=== PATIENT | male | born 1955 | race Caucasian/White ===

== ENCOUNTER 2024-11-07 13:18 | Outpatient (AMB) | payer MEDICARE, OTHER, SELFPAY ==
--- NOTE | 2024-11-07 13:30 | MHC.OFFWIV ---
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 Patient Tobacco Use Status: Never used Tobacco Allergies No Known Allergies Allergy (Verified 11/07/24 13:31) Do you need a note to return to daycare/school/sports/work: No HPI HPI Comments History of Present Illness Details History of Present Illness The patient is a 69-year-old male presenting with concerns about elevated blood pressure. During an evaluation for life insurance, his blood pressure readings were recorded thrice, each time being 180/100 mmHg. This occurrence prompted the patient to seek medical evaluation. He reports a known history of mildly elevated blood pressure but had not previously sought medical attention for this condition. The patient has experienced associated symptoms of lightheadedness, headaches, shortness of breath, dizziness, and occasional chest discomfort, aligning with symptoms of hypertension. These symptoms have been present for an unspecified duration but have contributed to his decision to seek care. He states he currently has none of these symptoms. The patient admits to a poor diet high in salt, neglects regular health check-ups, and does not currently monitor his blood pressure at home. There is no regular primary care engagement, with the last medical visit occurring during childhood. Physical Exam General: Cooperative, healthy appearing, comfortable, no acute distress and well developed Orientation: Patient oriented x3 Limitations: No limitations Head: Normal to inspection Ears: Hearing grossly normal bilaterally Nose: Normal external nose present Face and sinus: Normal facial exam Eyes: Appearance normal, both eyes and all related structures Neck: Normal visual inspection and Yes full ROM Respiratory: Normal respiratory effort and able to speak in complete sentences. Skin: No rashes or lesions noted Neuro: Patient oriented x3 Extremities: Normal to inspection PFSH Social History Patient Tobacco Use Status: Never used Tobacco Physical Exam Vital Signs: Last Vital Signs Pulse 77 11/07/24 13:31 BP 140/90 H 11/07/24 13:31 Pulse Ox 100 11/07/24 13:31 Oxygen Delivery Method Room Air 11/07/24 13:31 Assessment & Plan Assessment & Plan (1) Elevated blood pressure reading without diagnosis of hypertension: Code(s): R03.0 - Elevated blood-pressure reading, without diagnosis of hypertension Plan: Plan - Begin dietary sodium reduction to manage/help reduce elevated blood pressures. - Begin regular home blood pressure monitoring with a recommended device, available at [employer] or similar stores. Track daily and bring to PCP appt. - Advise to avoid canned and high-sodium foods to improve blood pressure control. - Discuss the importance of establishing care with a primary care provider for ongoing management of hypertension. - Assist in arranging an appointment with a primary care provider, ideally a male Physician Collision Repairer in [place], given the patient's insurance coverage with Medicare and [facility]. Able to secure an appt with Prosper Nieves PA-C on 12/20/24 at 2:45pm. - If symptoms develop and/or BP > 160/100, pt was educated to go to the ED or call 911. Patient was informed and verbally consented to the use of an ambient scribe for clinic note documentation during this visit. Coding Level of Care Code New Pt Level 4 (54442) Diagnoses Elevated blood pressure reading without diagnosis of hypertension R03.0
[2024-11-07 13:31] VITALS: BP 140/90; PULSE 77; O2SAT 100
== END 2024-11-07 14:00 | disposition home or self-care (01) ==
PROVIDERS: Visit Provider Physician Assistant
DX: R03.0 Elevated blood-pressure reading, without diagnosis of hypertension (principal)

== ENCOUNTER → 2024-11-07 13:18 | Outpatient (BNVA) | payer MEDICARE, OTHER, SELFPAY | PROVIDERS: Visit Provider Physician Assistant | DX: R03.0 Elevated blood-pressure reading, without diagnosis of hypertension (principal) | CPT/HCPCS: 99202 ==

== ENCOUNTER 2024-12-20 14:23 | Outpatient (AMB) | payer MEDICARE, OTHER, SELFPAY ==
--- NOTE | 2024-12-20 14:58 | MHC.PC.OV ---
Vital Signs 12/20/24 14:59 Height 5 ft 7 in Weight 256 lb 8 oz BMI 40.2 BP 150/90 H Blood Pressure Location Lt brachial Position Sitting Pulse 99 Pulse Source Pulse Oximeter Temp 97.7 F Temp Source Temporal Artery Scan Pulse Oximetry (%) 99 Oxygen Delivery Method Room Air Intake Visit Reasons: Establish care Intake Note: The patient is a new patient establishing care for hypertension. They have not seen a PCP in over 20-30 years. [employer] Required: No Accompanied by: Self / Same As Patient Allergies No Known Allergies Allergy (Verified 12/20/24 15:14) Medication List - Last Reconciled 12/20/24 by Darwin Nieves PA-C No Known Home Meds Tobacco use date assessed: 12/20/24 Fall risk assessment: No Falls in past year Last assessed Fall Risk: 12/20/24 Dental Screening Dental Screen Date: 12/20/24 Did you have a dental visit in the last 12 months?: Yes Did you have a dental problem in the last 6 months where you did not have access to dental care?: No Was dental information given to patient?: Patient has dentist HPI Establish care HPI Details Patient is a 69-year-old male here today for a new patient visit. Patient has not seen a PCP in over 20 years. Patient recently seen at our walk-in clinic and had elevated blood pressure readings 1 80s systolic. Today in office blood pressure remains elevated. Concern---> he does report knowing he does have high blood pressure though he is concerned about his arteries. He does admit to some chest tightness and shortness of breath on exertion. He is a nonsmoker. He reports does have a history of heart murmur has been told about many years ago. 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 Vaccines: Declines flu, pneumonia, Td Colorectal cancer screening: Declines [facility] Social History Housing: Apartment Patient Tobacco Use Status: Never used Tobacco e-Cigarette/Vaping Use: Never Used service: No Current occupational status: retired Cognitive needs: No Hearing needs: Yes Vision needs: No Questionnaire PHQ-9 Over the last 2 weeks, how often have you been bothered by any of the following problems? 1. Little interest or pleasure in doing things: not at all 2. Feeling down, depressed, or hopeless: not at all 3. Trouble falling or staying asleep, or sleeping too much: not at all 4. Feeling tired or having little energy: not at all 5. Poor appetite or overeating: not at all 6. Feeling bad about yourself - or that you are a failure or have let yourself or your family down: not at all 7. Trouble concentrating on things, such as reading the newspaper or watching television: not at all 8. Moving or speaking so slowly that other people could have noticed. Or the opposite - being so fidgety or restless that you have been moving around a lot more than usual: not at all 9. Thoughts that you would be better off or of hurting yourself in some way: not at all Total score: 0 Depression Screening Interpretation: Negative Depression Screening Done: Yes 85552 - PHQ-9 Billing: Yes Source: Developed by Drs. Bobby Mark, Honey Lugo, Jermaine Arrieta and colleagues, with an educational mariano from [employer]. Thrive Questionnaire Date Thrive assessed: 12/20/24 I am a: Patient What is your living situation today?: I have a steady place to live Within the past 12 months, did the food you bought not last and you didn't have the money to get more?: Never true Within the past 12 months, did you worry whether your food would run out before you got money to buy more?: Never true Do you have trouble paying for medicines?: No Do you have trouble getting transportation to medical appointments?: No Do you have trouble paying your heating and electricity bill?: No Do you have trouble taking care of your child, family member or friend?: No Do you have trouble with day-to-day activities such as bathing, preparing meals, shopping, managing finances, etc.?: No Are you currently unemployed and looking for a job?: No Are you interested in more education?: No Please select the resources that you would like help with: None Currently or been in a relationship where the following occur: No concerns reported THRIVE Score: 0 AUDIT C Alcohol Use Questionnaire (AUDIT-C) 1. How often do you have a drink containing alcohol?: Never 3. How often do you have six or more drinks on one occasion?: Never Total Score: 0 MATTHEW-7 AMB Questionnaire MATTHEW-7 Date MATTHEW - 7 assessed: 12/20/24 Feeling nervous, anxious, or on edge: 0 = Not at all Not being able to stop or control worryin = Not at all Worrying too much about different things: 0 = Not at all Trouble relaxin = Not at all Being so restless that it is hard to sit still: 0 = Not at all Becoming easily annoyed or irritable: 0 = Not at all Feeling afraid as if something awful might happen: 0 = Not at all Total MATTHEW-7 score (0-4 normal; 5-9 mild; 10-14 moderate; 15-21 severe): 0 Source: Developed by Drs. Bobby Mark, Honey Lugo, Jermaine Arrieta and colleagues, with an educational mariano from [employer]. MATTHEW-7 Assessment Billing MATTHEW-7 Assessment Tool: MATTHEW-7 Assessment 26468 Review of Systems Const Denies headache(s) Eyes Denies loss of vision ENT Denies vertigo, Denies dizziness, Denies headache(s) and Denies sore throat Card Denies chest pain, Denies leg edema and Denies lightheadedness Resp Denies cough, Denies hemoptysis and Denies wheezing GI Denies abdominal pain, Denies melena, Denies constipation, Denies diarrhea and Denies vomiting Denies dysuria, Denies urinary frequency and Denies urinary urgency Musc Denies arthralgias, Denies joint swelling, Denies numbness and Denies tingling Neuro Denies Abnormal speech present, Denies behavioral changes, Denies vertigo, Denies dizziness, Denies headache(s), Denies loss of vision, Denies memory loss, Denies numbness and Denies tingling Psych Denies anxiety, Denies behavioral changes, Denies depression, Denies memory loss and Denies panic attacks Zoltan/Lymph Denies easy bleeding and Denies easy bruising Aller/Immun Denies wheezing Physical exam (Primary Care) Vital Signs: Last Vital Signs Temp 97.7 F 12/20/24 14:59 Pulse 99 12/20/24 14:59 BP 150/90 H 12/20/24 14:59 Pulse Ox 99 12/20/24 14:59 Oxygen Delivery Method Room Air 12/20/24 14:59 BMI result Body Mass Index 40.2 BMI Assessment/Plan discussion: High BMI High, discussed plan: lifestyle, weight reduction, dietary and physical activity Tobacco/Smoking Status: Tobacco use Status Tobacco use date assessed 12/20/24 12/20/24 15:05 Patient Tobacco Use Status Never used Tobacco 12/20/24 15:01 e-Cigarette/Vaping Use Never Used 12/20/24 15:05 PHQ-9: PHQ-9 Score PHQ-9: Total score 0 12/20/24 15:46 Depression Screening Interpretation: Negative Thrive Assessment: Date of Thrive Assessment Date Thrive assessed 12/20/24 12/20/24 15:05 Currently or been in a relationship where the following occur: No concerns reported Const General: healthy appearing, no acute distress, alert and awake Nutritional Appearance: well nourished Orientation/consciousness: oriented to person, oriented to place and oriented to time HENMT Other: RIGHT EAR CERUMEN IMPACTION NOTED Ears: TM's normal bilaterally General nose exam: Normal nasal mucous membranes and turbinates present Eyes Conjunctivae: conjunctivae normal Sclerae: sclerae normal Pupils: Equal, round and reactive pupils present Neck Neck: Yes no lymphadenopathy and Yes no JVD Thyroid: Thyroid normal Carotids: no bruits Resp Effort & Inspection: normal respiratory effort and not tachypneic Auscultation: no crackles, no rales, no rhonchi and no wheezes Cardio Rate: regular rate Rhythm: abnormal rhythm irregularly irregular Heart sounds: no murmurs and normal S1 and S2 GI Palpation (GI): Soft to palpation, nontender, no hepatomegaly and no splenomegaly Auscultation: normal bowel sounds Skin General skin exam: no rashes or lesions noted and dry skin Neuro General: oriented to person, oriented to place and oriented to time Cranial nerves: Yes Equal, round and reactive pupils present Speech: No Abnormal speech present Gait exam (Neuro): Normal gait present Motor exam (neuro): no tremor noted Extrem Right upper extremity: full ROM Left upper extremity: full ROM Right lower extremity: full ROM; no edema Left lower extremity: full ROM; no edema Psych Mental Status: mental status grossly normal Speech and movement: Normal speech and movement present Affect: normal affect Attitude: cooperative Thought process: Normal thought process present Office Procedures EKG 61526-[id number], Complete Coding Level of Care Code New Pt Level 4 (84590) Diagnoses New onset a-fib I48.91 Primary hypertension I10 Hypertension type: primary hypertension Screening for diabetes mellitus (DM) Z13.1 SOB (shortness of breath) on exertion R06.02 Sensorineural hearing loss (SNHL) of both ears H90.3 Laterality: bilateral Class 3 obesity E66.813 CPT Codes EKG - CPT: 69417-[id number], Complete ([id number]) Additional Codes MATTHEW-7 Assessment Billing - MATTHEW-7 Assessment Tool: AMTTHEW-7 Assessment 40629 ([id number]) PHQ-9 - 17070 - PHQ-9 Billing: Yes ([id number]) Assessment & Plan Assessment & Plan (1) New onset a-fib: Code(s): I48.91 - Unspecified atrial fibrillation Category: Medical Plan: Noted AFib here in office today. He has never been diagnosed with this before. Has normal mean ventricular response. CHADS score presumably 1. Will start baby aspirin and refer to Cardiology for further evaluation. (2) HTN (hypertension): Code(s): I10 - Essential (primary) hypertension Category: Medical Qualifiers: Hypertension type: primary hypertension Qualified Code(s): I10 - Essential (primary) hypertension Plan: Noted blood pressure to be elevated today in office and has been at previous office visits. He is willing to start low-dose hydrochlorothiazide to help lower his blood pressure. Goal blood pressures to be below 140/90 (3) Screening for diabetes mellitus (DM): Code(s): Z13.1 - Encounter for screening for diabetes mellitus Category: Medical Plan: As per HPI (4) SOB (shortness of breath) on exertion: Code(s): R06.02 - Shortness of breath Category: Medical Plan: Due to patient's chest discomfort and shortness of breath on exertion in the setting of elevated blood pressures will send for Jerry protocol cardiac stress testing to evaluate for cardiac ischemia on physical exam. (5) SNHL (sensorineural hearing loss): Code(s): H90.5 - Unspecified sensorineural hearing loss Category: Medical Qualifiers: Laterality: bilateral Qualified Code(s): H90.3 - Sensorineural hearing loss, bilateral Plan: Patient does have a cerumen impaction in his right ear though left ear clear. He does report having decreased hearing in both ears. Will send for hearing exam to evaluate for sensorineural hearing loss. Will set patient up in a few weeks to do right ear lavage. (6) Class 3 obesity: Code(s): E66.813 - Obesity, class 3 Category: Medical Plan: Patient does understand his BMI is over 40 reluctant to start working on dietary modifications. He is considering being more physically active to lose some weight. Orders: Orders Comprehensive [place]. Panel Fast 12/20/24 I10 - Essential (primary) hypertension Complete Blood Count no Diff 12/20/24 I10 - Essential (primary) hypertension Microalbumin, Random (w Creat) 12/20/24 I10 - Essential (primary) hypertension Prostate Specific Antigen Scr 12/20/24 I10 - Essential (primary) hypertension, Z12.5 - Encounter for screening for malignant neoplasm of prostate Lipid Panel 12/20/24 I10 - Essential (primary) hypertension AMB EKG-In Office 12/20/24 I49.9 - Cardiac arrhythmia, unspecified CA stress test 12/20/24 R06.02 - Shortness of breath Referrals Speech and Hearing Referral H90.3 - Sensorineural hearing loss, bilateral Cardiology Referral I48.91 - Unspecified atrial fibrillation Medications: New aspirin (Adult Low Dose Aspirin) 81 mg PO DAILY 90 tabs 1RF 90 days I48.91 - Unspecified atrial fibrillation hydrochlorothiazide 12.5 mg PO DAILY 90 tabs 1RF 90 days I10 - Essential (primary) hypertension
[2024-12-20 14:59] VITALS: BP 150/90; PULSE 99; TEMP 36.5; O2SAT 99; BMI 40.2
== END 2024-12-20 16:06 | disposition home or self-care (01) ==
PROVIDERS: Visit Provider Physician Assistant
DX: I49.9 Cardiac arrhythmia, unspecified (principal); R06.02 Shortness of breath

== ENCOUNTER → 2024-12-20 14:23 | Outpatient (BNVA) | payer MEDICARE, OTHER, SELFPAY | PROVIDERS: Visit Provider Physician Assistant | DX: I48.91 Unspecified atrial fibrillation (principal); I10 Essential (primary) hypertension; R06.02 Shortness of breath; H90.3 Sensorineural hearing loss, bilateral; E66.813 Obesity, class 3 | CPT/HCPCS: 93005; 96127; 99202 ==

== ENCOUNTER 2024-12-22 06:54 | Outpatient (REF) | payer MEDICARE, OTHER, SELFPAY ==
[2024-12-22 10:05] LABS: Hematocrit 49.5 % (42.0-52.0); Hemoglobin 16.7 g/dl (14.0-18.0); Mean Corpuscular HGB Conc 33.7 g/dl (31.0-36.0); Mean Corpuscular Hemoglobin 31.6 pg (27.0-33.0); Mean Corpuscular Volume 93.6 fL (80.0-98.0); Mean Platelet Volume 11.9 fL (9.4-12.4); Platelet Count 243 X10*3/uL (160-400); Red Blood Count 5.29 X10*6/uL (4.60-5.80); Red Cell Distribution Width 12.5 % (11.0-16.0); White Blood Count 5.3 X10*3/uL (4.8-10.8)
[2024-12-22 10:22] LABS: Alanine Aminotransferase 21 U/L (0-40); Albumin Level 4.2 g/dL (3.5-5.0); Alkaline Phosphatase 64 U/L (39-117); Anion Gap 9 (12-20); Aspartate Amino Transferase 28 U/L (5-37); Bilirubin Total 0.8 mg/dL (0.0-1.0); Blood Urea Nitrogen 19 mg/dL (9-16); Calcium 9.2 mg/dL (8.4-10.2); Carbon Dioxide 25 mmol/L (22-29); Chloride 109 mmol/L (96-108); Cholesterol 164 mg/dL (<200); Estimated Glomerular Filt Rate > 60; Glucose Fasting 89 mg/dL (60-99); HDL Cholesterol 46 mg/dL (>40); LDL Cholesterol Calculated 102 mg/dL (<100); Potassium 4.7 mmol/L (3.3-5.1); Sodium 138 mmol/L (135-145); Total Protein 7.3 g/dL (6.5-8.0); Triglycerides 82 mg/dL (<150)
[2024-12-22 10:35] LABS: Prostate Specific Antigen Scr 2.79 ng/mL (<0.05-4.0)
[2024-12-22 10:47] LABS: Creatinine Urine 110.05 mg/dL; Microalbumin Urine < 5.0 mg/L
== END 2024-12-22 06:55 | disposition home or self-care (01) ==
LOC: HO.HMGCLDS 06:54
PROVIDERS: PCP Physician Assistant; Visit Provider Physician Assistant
DX: I10 Essential (primary) hypertension (principal); Z12.5 Encounter for screening for malignant neoplasm of prostate
CPT/HCPCS: 36415; 80053; 80061; 82043; 82570; 84153; 85027

== ENCOUNTER 2025-01-09 13:09 | Outpatient (AMB) | payer MEDICARE, OTHER, SELFPAY ==
--- NOTE | 2025-01-09 13:18 | A.OFFPC_ITS ---
Vital Signs 01/09/25 13:19 Height 5 ft 7 in Weight 256 lb BMI 40.1 BP 142/96 H Blood Pressure Location Lt brachial Position Sitting Pulse 112 H Pulse Source Pulse Oximeter Pulse Oximetry (%) 99 Oxygen Delivery Method Room Air Intake Visit Reasons: Ear Flush Cloud Physicist Required: No Accompanied by: Self / Same As Patient Allergies No Known Allergies Allergy (Verified 01/09/25 13:29) Medication List - Last Reconciled 01/09/25 by Darwin Nieves PA-C apixaban (Eliquis) 5 mg PO BID 90 days hydrochlorothiazide 12.5 mg PO DAILY 90 days Tobacco use date assessed: 01/09/25 Fall risk assessment: No Falls in past year Last assessed Fall Risk: 01/09/25 Dental Screening Dental Screen Date: 01/09/25 Did you have a dental visit in the last 12 months?: No Did you have a dental problem in the last 6 months where you did not have access to dental care?: No Was dental information given to patient?: No HPI Ear Flush HPI Details Patient is a 69-year-old male here today for cerumen impaction. Has upcoming appointment with hearing center for hearing exam. Blood pressure: Remains elevated today in office. He feels much better since starting Eliquis though does not feel hydrochlorothiazide helpful. Has upcoming appointment with Cardiology. [facility] Social History Housing: Apartment Patient Tobacco Use Status: Never used Tobacco e-Cigarette/Vaping Use: Never Used service: No Current occupational status: retired Cognitive needs: No Hearing needs: Yes Vision needs: No Questionnaire PHQ-9 Over the last 2 weeks, how often have you been bothered by any of the following problems? 1. Little interest or pleasure in doing things: not at all 2. Feeling down, depressed, or hopeless: not at all 3. Trouble falling or staying asleep, or sleeping too much: not at all 4. Feeling tired or having little energy: not at all 5. Poor appetite or overeating: not at all 6. Feeling bad about yourself - or that you are a failure or have let yourself or your family down: not at all 7. Trouble concentrating on things, such as reading the newspaper or watching television: not at all 8. Moving or speaking so slowly that other people could have noticed. Or the opposite - being so fidgety or restless that you have been moving around a lot more than usual: not at all 9. Thoughts that you would be better off or of hurting yourself in some way: not at all Total score: 0 Depression Screening Interpretation: Negative Depression Screening Done: Yes 94000 - PHQ-9 Billing: Yes Source: Developed by Drs. Bobby Mark, Honey Lugo, Jermaine Arrieta and colleagues, with an educational mariano from [employer]. Thrive Questionnaire Date Thrive assessed: 01/09/25 I am a: Patient What is your living situation today?: I have a steady place to live Within the past 12 months, did the food you bought not last and you didn't have the money to get more?: Never true Within the past 12 months, did you worry whether your food would run out before you got money to buy more?: Never true Do you have trouble paying for medicines?: No Do you have trouble getting transportation to medical appointments?: No Do you have trouble paying your heating and electricity bill?: No Do you have trouble taking care of your child, family member or friend?: No Do you have trouble with day-to-day activities such as bathing, preparing meals, shopping, managing finances, etc.?: No Are you currently unemployed and looking for a job?: No Are you interested in more education?: No Please select the resources that you would like help with: None Currently or been in a relationship where the following occur: No concerns reported THRIVE Score: 0 AUDIT C Alcohol Use Questionnaire (AUDIT-C) 1. How often do you have a drink containing alcohol?: Never 3. How often do you have six or more drinks on one occasion?: Never Total Score: 0 MATTHEW-7 AMB Questionnaire MATTHEW-7 Date MATTHEW - 7 assessed: 01/09/25 Feeling nervous, anxious, or on edge: 0 = Not at all Not being able to stop or control worryin = Not at all Worrying too much about different things: 0 = Not at all Trouble relaxin = Not at all Being so restless that it is hard to sit still: 0 = Not at all Becoming easily annoyed or irritable: 0 = Not at all Feeling afraid as if something awful might happen: 0 = Not at all Total MATTHEW-7 score (0-4 normal; 5-9 mild; 10-14 moderate; 15-21 severe): 0 Source: Developed by Drs. Bobby Mark, Honey Lugo, Jermaine Arrieta and colleagues, with an educational mariano from [employer]. MATTHEW-7 Assessment Billing MATTHEW-7 Assessment Tool: MATTHEW-7 Assessment 38249 Review of Systems Const Denies headache(s) Eyes Denies loss of vision ENT Denies vertigo, Denies dizziness, Denies headache(s) and Denies sore throat Card Denies chest pain, Denies leg edema and Denies lightheadedness Resp Denies cough, Denies hemoptysis and Denies wheezing GI Denies abdominal pain, Denies melena, Denies constipation, Denies diarrhea and Denies vomiting Denies dysuria, Denies urinary frequency and Denies urinary urgency Musc Denies arthralgias, Denies joint swelling, Denies numbness and Denies tingling Neuro Denies Abnormal speech present, Denies behavioral changes, Denies vertigo, Denies dizziness, Denies headache(s), Denies loss of vision, Denies memory loss, Denies numbness and Denies tingling Psych Denies anxiety, Denies behavioral changes, Denies depression, Denies memory loss and Denies panic attacks Zoltan/Lymph Denies easy bleeding and Denies easy bruising Aller/Immun Denies wheezing Physical exam (Primary Care) Vital Signs: Last Vital Signs Pulse 112 H 01/09/25 13:19 BP 142/96 H 01/09/25 13:19 Pulse Ox 99 01/09/25 13:19 Oxygen Delivery Method Room Air 01/09/25 13:19 BMI result Body Mass Index 40.1 Tobacco/Smoking Status: Tobacco use Status Tobacco use date assessed 01/09/25 01/09/25 13:27 Patient Tobacco Use Status Never used Tobacco 01/09/25 13:27 e-Cigarette/Vaping Use Never Used 01/09/25 13:27 PHQ-9: PHQ-9 Score PHQ-9: Total score 0 01/09/25 13:30 Depression Screening Interpretation: Negative Thrive Assessment: Date of Thrive Assessment Date Thrive assessed 01/09/25 01/09/25 13:27 Currently or been in a relationship where the following occur: No concerns reported Const General: healthy appearing, no acute distress, alert and awake Nutritional Appearance: well nourished Orientation/consciousness: oriented to person, oriented to place and oriented to time HENMT Other: RIGHT EAR: CERUMEN IMPACTION Ears: TM's normal bilaterally General nose exam: Normal nasal mucous membranes and turbinates present Eyes Conjunctivae: conjunctivae normal Sclerae: sclerae normal Pupils: Equal, round and reactive pupils present Neck Neck: Yes no lymphadenopathy and Yes no JVD Thyroid: Thyroid normal Carotids: no bruits Resp Effort & Inspection: normal respiratory effort and not tachypneic Auscultation: no crackles, no rales, no rhonchi and no wheezes Cardio Rate: regular rate Rhythm: regular rhythm Heart sounds: no murmurs and normal S1 and S2 GI Palpation (GI): Soft to palpation, nontender, no hepatomegaly and no splenomegaly Auscultation: normal bowel sounds Skin General skin exam: no rashes or lesions noted and dry skin Neuro General: oriented to person, oriented to place and oriented to time Cranial nerves: Yes Equal, round and reactive pupils present Speech: No Abnormal speech present Gait exam (Neuro): Normal gait present Motor exam (neuro): no tremor noted Extrem Right upper extremity: full ROM Left upper extremity: full ROM Right lower extremity: full ROM; no edema Left lower extremity: full ROM; no edema Psych Mental Status: mental status grossly normal Speech and movement: Normal speech and movement present Affect: normal affect Attitude: cooperative Thought process: Normal thought process present Office Procedures Cerumen Removal From which ear canal was the cerumen removed: right Removal: irrigation and otoscope w/curette Notes: patient tolerated procedure well [id number] Irrigation/Lavage Coding Level of Care Code Est Pt Level 3 (22270) Diagnoses Excessive cerumen in right ear canal H61.21 Primary hypertension I10 Hypertension type: primary hypertension CPT Codes Office Procedure - CPT: 03718-Puc Irrigation/Lavage ([id number]) Additional Codes MATTHEW-7 Assessment Billing - MATTHEW-7 Assessment Tool: MATTHEW-7 Assessment 60175 ([id number]) PHQ-9 - 32475 - PHQ-9 Billing: Yes ([id number]) Assessment & Plan Assessment & Plan (1) Excessive cerumen in right ear canal: Code(s): H61.21 - Impacted cerumen, right ear Category: Medical Plan: Unsuccessful attempt on right ear lavage. Will goal when due his own soaks in his right ear and will have by patient back in 10 days to do ear lavage again. He will postpone his appointment with the hearing center for hearing exam. (2) HTN (hypertension): Code(s): I10 - Essential (primary) hypertension Category: Medical Qualifiers: Hypertension type: primary hypertension Qualified Code(s): I10 - Essential (primary) hypertension Plan: Patient now monitoring blood pressure. Still slightly elevated here in office. He reports blood pressure systolic 140 even with the use of hydrochlorothiazide 12.5 mg. Reports since starting Eliquis he feels his breathing has been much better. We discussed possibly increasing his hydrochlorothiazide or trying an alternative blood pressure medications he would like to hold off and speak to Cardiology about additional blood pressure medication. Advised to continue monitoring with goal blood pressure to be below 140/90
[2025-01-09 13:19] VITALS: BP 142/96; PULSE 112; O2SAT 99; BMI 40.1
== END 2025-01-09 14:01 | disposition home or self-care (01) ==
PROVIDERS: Visit Provider Physician Assistant
DX: H61.21 Impacted cerumen, right ear (principal); I10 Essential (primary) hypertension

== ENCOUNTER → 2025-01-09 13:09 | Outpatient (BNVA) | payer MEDICARE, OTHER, SELFPAY | PROVIDERS: Visit Provider Physician Assistant | DX: H61.21 Impacted cerumen, right ear (principal); I10 Essential (primary) hypertension | CPT/HCPCS: 69210; 96127; 99212 ==

== ENCOUNTER 2025-01-12 14:51 | Outpatient (AMB) | payer MEDICARE, OTHER, SELFPAY ==
[2025-01-12 15:10] VITALS: BP 130/40; PULSE 113; BMI 40.4
--- NOTE | 2025-01-12 15:10 | A.OFFVIS_ITS ---
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 The patient reports that he has not seen a doctor prior to November of this year. During his initial visit with the PCP, he was diagnosed with hypertension was started on hydrochlorothiazide. At that time the patient also noted increased shortness of breath, and an EKG revealed AFib with RVR. He was subsequently started on Eliquis. Patient denies any prior history of ischemic heart disease, cardiomyopathy, or coronary artery disease. Currently, patient reports that he has only been experiencing mild exertional shortness of breath and denies any exertional chest pain, palpitations, dizziness, fatigue, orthopnea, PND, leg edema, presyncope, or syncope. The patient also denies use of alcohol or nicotine. [facility] Social History Housing: Apartment Alcohol intake: never Patient Tobacco Use Status: Never used Tobacco e-Cigarette/Vaping Use: Never Used service: No Current occupational status: retired Cognitive needs: No Hearing needs: Yes Vision needs: No Review of Systems Const Denies chills, Denies fatigue, Denies fever(s), Denies frequent falls, Denies weakness, Denies weight gain and Denies weight loss ENT Denies dizziness Card Denies chest pain, Denies leg edema, Denies lightheadedness, Denies pal pitations, Denies dyspnea and Denies dyspnea on exertion Resp Denies cough, Denies dyspnea and Denies dyspnea on exertion GI Denies hematochezia Musc Denies abnormal gait, Denies muscle weakness, Denies numbness, Denies radiating pain into limb and Denies tingling Neuro Denies abnormal gait, Denies dizziness, Denies frequent falls, Denies numbness, Denies tingling and Denies weakness Endo Denies fatigue and Denies palpitations Physical Exam Vital Signs: Last Vital Signs Pulse 113 H 01/12/25 15:10 BP 130/40 L 01/12/25 15:10 BMI result Body Mass Index 40.4 Const General: cooperative, healthy appearing, comfortable and no acute distress Orientation/consciousness: patient oriented x3 HEENT Head: Yes normal to inspection Neck Neck: Yes normal visual inspection, Yes trachea midline and Yes supple Chest Chest palpation & inspection: normal inspection of the chest Resp Effort & Inspection: normal respiratory effort Auscultation: clear to auscultation bilaterally, no crackles, no rales, no rhonchi and no wheezes Cardio Jugular venous distension: no JVD Palpation: normal PMI Rhythm: abnormal rhythm irregularly irregular Heart sounds: S1 normal heart sound present, S2 normal heart sound present, no click, no gallops, Murmur heart sound present systolic at the right sternal border and no rubs Peripheral pulses: Peripheral pulses 2+ throughout GI Inspection: Yes normal to inspection Palpation (GI): Soft to palpation Auscultation: normal bowel sounds Skin General skin exam: no rashes or lesions noted Neuro General: patient oriented x3 Extrem General: Yes normal to inspection, No no pedal edema and No calf tenderness Psych Appearance: grossly normal Mental Status: mental status grossly normal Speech and movement: Normal speech and movement present Office Procedures EKG Details: EKG today showed AFib with RVR, rate 113 beats per minute, nonspecific STT wave abnormalities, [place]. [id number], Complete Assessment & Plan Assessment & Plan (1) Afib: Code(s): I48.91 - Unspecified atrial fibrillation Category: Medical Plan: Patient's EKG today showed AFib with RVR. The patient began taking his Eliquis on 01/05/2025, and with the [id number] score of at least 2, continue with full anticoagulation therapy to reduce the high risk of stroke. Renal and liver function will be monitored periodically. Heart rate remains uncontrolled. We will initiate metoprolol XL for rate control. We also reviewed the pathophysiology of AFib and discussed about rhythm control strategies in the option of ablation. The patient expressed hesitation to what any procedures at this time. We will proceed with an echocardiogram to assess LV systolic and diastolic function. Based on the results, we will determine a rhythm control strategy. Patient was also informed on the option about cardioversion in detail and is agreeable to this approach. We will bring the patient back in 1 month to further discuss the initiation of antiarrhythmic therapy. Once this is started, we will schedule him for cardioversion. (2) HTN (hypertension): Code(s): I10 - Essential (primary) hypertension Category: Medical Qualifiers: Hypertension type: primary hypertension Qualified Code(s): I10 - Essential (primary) hypertension Plan: Blood pressure today is well controlled however, patient notes that he has been checking it at home and has noticed blood pressures have been mostly in the 140s to 150s systolic. Continue with the hydrochlorothiazide. Start metoprolol. (3) Murmur: Code(s): R01.1 - Cardiac murmur, unspecified Category: Medical Plan: Systolic murmur heard at the right 2nd intercostal sternal border. We will get an echo to look for any valvular abnormalities. Advised patient to lose weight, start regular exercise, and aggressive management of vascular risk factors. Follow-up in 1 month. In the interim, patient will call us with any concerns or change in symptoms. This note was generated using voice recognition software. While every effort has been made to ensure accuracy and proper towel sorter, there may be occasional errors that could affect the content or meaning of the described symptoms. Orders: Orders AMB EKG-In Office Today I48.91 - Unspecified atrial fibrillation CA echo transthoracic complete Today I48.91 - Unspecified atrial fibrillation Medications: New metoprolol succinate ER 50 mg PO DAILY 90 tabs 1RF Coding Level of Care Code New Pt Level 4 (90461) Diagnoses Afib I48.91 Primary hypertension I10 Hypertension type: primary hypertension Murmur R01.1 CPT Codes EKG - CPT: 56462-Wqjytbafpzeneewxj, Complete ([id number]) Time Spent (min) 34 Comment Time spent in reviewing the chart, test results, assessment, counseling and documentation.
== END 2025-01-12 15:48 | disposition home or self-care (01) ==
PROVIDERS: PCP Physician Assistant
DX: I48.91 Unspecified atrial fibrillation (principal); I10 Essential (primary) hypertension; R01.1 Cardiac murmur, unspecified
CPT/HCPCS: 93010; 99204

== ENCOUNTER → 2025-01-12 14:51 | Outpatient (BNVA) | payer MEDICARE, OTHER, SELFPAY | PROVIDERS: PCP Physician Assistant | DX: I48.91 Unspecified atrial fibrillation (principal); I10 Essential (primary) hypertension; R94.31 Abnormal electrocardiogram [ECG] [EKG] | CPT/HCPCS: 93005; 99202 ==

== ENCOUNTER 2025-01-19 12:45 | Outpatient (AMB) | payer MEDICARE, OTHER, SELFPAY ==
--- NOTE | 2025-01-19 12:47 | A.OFFPC_ITS ---
Vital Signs 01/19/25 12:49 Height 5 ft 7 in Weight 259 lb BMI 40.6 BP 132/80 Blood Pressure Location Lt brachial Position Sitting Pulse 125 H Pulse Source Pulse Oximeter Pulse Oximetry (%) 98 Oxygen Delivery Method Room Air Intake Visit Reasons: Right ear cleaning Skid Strapper Required: No Accompanied by: Self / Same As Patient Allergies No Known Allergies Allergy (Verified 01/19/25 13:00) Tobacco use date assessed: 01/09/25 Fall risk assessment: No Falls in past year Last assessed Fall Risk: 01/19/25 Dental Screening Dental Screen Date: 01/09/25 HPI Right ear cleaning HPI Details Patient here for follow-up right ear cerumen impaction removal. Has been using home remedies to dislodge his cerumen which has been successful. No cerumen in ear today thus your lavage did not need to be done. [facility] Surgical History No pertinent past surgical history Social History Housing: Apartment Alcohol intake: never Patient Tobacco Use Status: Never used Tobacco e-Cigarette/Vaping Use: Never Used service: No Current occupational status: retired Cognitive needs: No Hearing needs: Yes Vision needs: No Questionnaire Thrive Questionnaire Date Thrive assessed: 01/09/25 MATTHEW-7 AMB Questionnaire MATTHEW-7 Date MATTHEW - 7 assessed: 01/09/25 Source: Developed by Drs. Bobby Mark, Honey Lugo, Jermaine Arrieta and colleagues, with an educational mariano from [employer]. Review of Systems Const Denies headache(s) Eyes Denies loss of vision ENT Denies vertigo, Denies dizziness, Denies headache(s) and Denies sore throat Card Denies chest pain, Denies leg edema and Denies lightheadedness Resp Denies cough, Denies hemoptysis and Denies wheezing GI Denies abdominal pain, Denies melena, Denies constipation, Denies diarrhea and Denies vomiting Denies dysuria, Denies urinary frequency and Denies urinary urgency Musc Denies arthralgias, Denies joint swelling, Denies numbness and Denies tingling Neuro Denies Abnormal speech present, Denies behavioral changes, Denies vertigo, Denies dizziness, Denies headache(s), Denies loss of vision, Denies memory loss, Denies numbness and Denies tingling Psych Denies anxiety, Denies behavioral changes, Denies depression, Denies memory loss and Denies panic attacks Zoltan/Lymph Denies easy bleeding and Denies easy bruising Aller/Immun Denies wheezing Physical exam (Primary Care) Vital Signs: Last Vital Signs Pulse 125 H 01/19/25 12:49 BP 132/80 01/19/25 12:49 Pulse Ox 98 01/19/25 12:49 Oxygen Delivery Method Room Air 01/19/25 12:49 BMI result Body Mass Index 40.6 Tobacco/Smoking Status: Tobacco use Status Tobacco use date assessed 01/09/25 01/19/25 12:49 Patient Tobacco Use Status Never used Tobacco 01/19/25 12:49 e-Cigarette/Vaping Use Never Used 01/19/25 12:49 Thrive Assessment: Date of Thrive Assessment Date Thrive assessed 01/09/25 01/19/25 12:49 Const General: healthy appearing, no acute distress, alert and awake Nutritional Appearance: well nourished Orientation/consciousness: oriented to person, oriented to place and oriented to time HENMT Ears: TM's normal bilaterally General nose exam: Normal nasal mucous membranes and turbinates present Eyes Conjunctivae: conjunctivae normal Sclerae: sclerae normal Pupils: Equal, round and reactive pupils present Neck Neck: Yes no lymphadenopathy and Yes no JVD Thyroid: Thyroid normal Carotids: no bruits Resp Effort & Inspection: normal respiratory effort and not tachypneic Auscultation: no crackles, no rales, no rhonchi and no wheezes Cardio Rate: regular rate Rhythm: regular rhythm Heart sounds: no murmurs and normal S1 and S2 GI Palpation (GI): Soft to palpation, nontender, no hepatomegaly and no splenomegaly Auscultation: normal bowel sounds Skin General skin exam: no rashes or lesions noted and dry skin Neuro General: oriented to person, oriented to place and oriented to time Cranial nerves: Yes Equal, round and reactive pupils present Speech: No Abnormal speech present Gait exam (Neuro): Normal gait present Motor exam (neuro): no tremor noted Extrem Right upper extremity: full ROM Left upper extremity: full ROM Right lower extremity: full ROM; no edema Left lower extremity: full ROM; no edema Psych Mental Status: mental status grossly normal Speech and movement: Normal speech and movement present Affect: normal affect Attitude: cooperative Thought process: Normal thought process present Coding Level of Care Code Est Pt Level 3 (45737) Diagnoses Excessive cerumen in right ear canal H61.21 Assessment & Plan Assessment & Plan (1) Excessive cerumen in right ear canal: Code(s): H61.21 - Impacted cerumen, right ear Category: Medical Plan: As per HPI Patient was able to dislodge ear wax from right ear. Reports he is hearing a bit better though still feels a congestion feeling and tinnitus in his ear. Has upcoming appointment for hearing test next week.
[2025-01-19 12:49] VITALS: BP 132/80; PULSE 125; O2SAT 98; BMI 40.6
== END 2025-01-19 13:17 | disposition home or self-care (01) ==
PROVIDERS: Visit Provider Physician Assistant
DX: H61.21 Impacted cerumen, right ear (principal)

== ENCOUNTER → 2025-01-19 12:45 | Outpatient (BNVA) | payer MEDICARE, OTHER, SELFPAY | PROVIDERS: Visit Provider Physician Assistant | DX: H61.21 Impacted cerumen, right ear (principal) | CPT/HCPCS: 99212 ==

== ENCOUNTER 2025-01-24 08:39 | Outpatient (REF) | payer MEDICARE, OTHER, SELFPAY | END 2025-01-24 08:40 | disposition home or self-care (01) | LOC: HO.SH 08:39 | PROVIDERS: Visit Provider Physician Assistant | DX: Z46.1 Encounter for fitting and adjustment of hearing aid (principal); H90.3 Sensorineural hearing loss, bilateral | CPT/HCPCS: 92557; 92567 ==

== ENCOUNTER → 2025-02-01 09:25 | Outpatient (REF) | payer MEDICARE, OTHER, SELFPAY ==
--- NOTE | 2025-02-01 09:26 | CA_ITS ---
Transthoracic Echocardiogram Patient (Last, First, Middle): Oseas Baig, Gender: Male Date of : 1955 Age: 69 Procedure Date: 02/01/2025 Procedure Type: Transthoracic Echocardiogram Location: OP Height: 170.18 cm Weight: 113.4 kg BSA: 2.22 m2 Heart Rate: bpm BP: 138 / 72 mmHg Field Underwriter: TO Referring MD: Rogelio Chahal [employer] TECHNICIAN Facilities Operations Technician: Erick Davies MD Symptoms: I48.91 - Unspecified atrial fibrillation Study Quality: Fair, contrast ECG Rhythm: Atrial Fibrillation Conclusions: - 1. Normal LV ejection fraction of 55-60% with mild LVH 2. At least moderately dilated left atrium 3. Moderate to severe aortic stenosis 4. Mildly dilated ascending aorta Findings Procedure Information Contrast agent, definity, is being given per protocol without apparent complications. Left Ventricle Normal left ventricular size and systolic function. There is mildly increased left ventricular wall thickness. The visually estimated ejection fraction is between 55-60%. Diastolic function is indeterminate on the basis of available data. Right Ventricle The right ventricle was not well visualized. Atria The left atrium is moderately dilated. The right atrium is mildly dilated. Aortic Valve There is moderate calcification of the aortic valve. There is moderate to severe aortic valve stenosis. The peak aortic gradient is 36 mmHg.The mean gradient is 23 mmHg. The aortic valve area is 0.97 cm2. There is mild aortic valve regurgitation. Mitral Valve Normal mitral valve structure and function. There is trace mitral valve regurgitation. There is no mitral valve stenosis. Pulmonic Valve The pulmonic valve was not well visualized. Tricuspid Valve The tricuspid valve was not well visualized. Tricuspid regurgitation envelope is inadequate for calculation of right ventricular systolic pressure. Indeterminate right atrial pressure. Great Vessels The aorta was not well visualized. The pulmonary artery was not well visualized. There is mild dilatation of the ascending aorta measuring 3.70 cm. Venous The inferior vena cava was not well visualized. Pericardium/Pleural The pericardium was not well visualized. Prior Study Comparison No prior study available for comparison. Measurements 2D Linear Measurements IVSd: 1.23 0.6-0.9/0.6-1.0 cm LVIDd: 3.98 3.9-5.3/4.2-5.9 cm LVIDd Index: 1.79 2.4-3.2/2.2-3.1 cm/m2 LVIDs: 2.95 2.0-3.6 cm LVPWd: 1.09 0.7-1.1 cm LA Diam: 4.70 2.7-3.8/3.0-4.0 cm LAIDs Index: 2.12 1.5-2.3 cm/m2 LV Mass: 194.48 67-162/88-224 g LV Mass Index: 87.60 43-95/49-115 g/m2 LVOT Diam: 2.10 3.0+(-)1.3 cm 2D Systolic Function EF 4C: 59.90 >55% EF 2C: 59.10 >55% EF BiP: 57.10 >55% Mitral Valve MV Pk E: 0.81 MV Decel Time: 197.00 E'Lateral: 8.05 E'Medial: 6.42 E/E' Med: 12.60 E/E' Lat: 10.00 PHT: 58.00 MVA PHT: 3.79 Decel Hamblen: 4.11 Aortic Valve AoV Pk Huber: 3.02 AoV Mn Huber: 2.26 AoV VTI: 0.67 AoV Pk Grad: 36.00 Aov Mn Grad: 23.00 CHAZ Cont.VTI: 0.97 AI Pk Huber: 4.30 AI Hamblen: 1.75 LVOT LVOT Pk Huber: 0.84 LVOT Mn Huber: 0.59 LVOT VTI: 0.19 LVOT Pk Grad: 3.00 LVOT Mn Grad: 1.00 LVOT Diam: 2.10 LVOT Area: 3.46 Diastolic Function MV Pk E: 0.81 E'Medial: 6.42 E/E' Med: 12.60 E' Laterial: 8.05 E/E' Lat: 10.00 Right Ventricle TAPSE (mm): 14.40 TVS' Hubre: 7.87 Tricuspid Valve TR Pk Huber: 2.17 TR Pk Grad: 19.00 Great Vessels Aorta Sinus of Valsalva: 3.04 2.0-3.5 cm Ao Asc: 3.70 2.1-3.4 cm Updated in Other Vendor System with Status of Final Erick Davies MD electronically signed on 02/01/2025 4:17:21 PM with status of Final
== END ==
LOC: HO.CARD 09:25
PROVIDERS: PCP Physician Assistant
DX: I48.91 Unspecified atrial fibrillation (principal)
CPT/HCPCS: 93306; Q9957

== ENCOUNTER → 2025-02-01 09:26 | Outpatient (BNV) | payer MEDICARE, OTHER, SELFPAY | PROVIDERS: PCP Physician Assistant; Visit Provider Internal Medicine Cardiovascular Disease | DX: I35.2 Nonrheumatic aortic (valve) stenosis with insufficiency (principal); I35.8 Other nonrheumatic aortic valve disorders; I48.91 Unspecified atrial fibrillation | CPT/HCPCS: 93306 ==

== ENCOUNTER 2025-02-09 13:51 | Outpatient (AMB) | payer MEDICARE, OTHER, SELFPAY ==
--- NOTE | 2025-02-09 14:08 | A.OFFVIS_ITS ---
Vital Signs 02/09/25 14:09 Height 5 ft 7 in Weight 257 lb 15.053 oz BMI 40.4 BP 138/78 Blood Pressure Location Lt brachial Position Sitting Pulse 72 Pulse Source Pulse Oximeter Intake Visit Reasons: 1m follow up/echo prior Allergies No Known Allergies Allergy (Verified 01/19/25 13:00) Medication List - Last Reconciled 02/09/25 by Rogelio Chahal NP apixaban (Eliquis) 5 mg PO BID 90 days hydrochlorothiazide 12.5 mg PO DAILY 90 days metoprolol succinate ER 50 mg PO DAILY HPI Comments Details: This is a 69-year-old male patient with a history of AFib and hypertension presenting for a follow-up visit. Patient had experienced increased shortness of breath prompting his PCP to order a treadmill stress test which led to a diagnosis of AFib. He was subsequently seen here and was started on Eliquis. The patient also underwent an echocardiogram and for his elevated rates he was started on metoprolol. During the last visit, we discussed the options of ablation, antiarrhythmics, all cardioversion and the patient is now returning with his decision. Today the patient reports feeling well overall on the new medications and denies any cardiac symptoms including shortness of breath, exertional chest pain, palpitations, dizziness, fatigue, orthopnea, PND, leg edema, presyncope, or syncope. The patient confirms that he has been compliant with his prescribed medications and is currently refusing any further procedures or medications for the management of his AFib at this time. [facility] Surgical History No pertinent past surgical history Social History Housing: Apartment Alcohol intake: never Patient Tobacco Use Status: Never used Tobacco e-Cigarette/Vaping Use: Never Used service: No Current occupational status: retired Cognitive needs: No Hearing needs: Yes Vision needs: No Review of Systems Const Denies weakness ENT Denies dizziness Card Denies chest pain, Denies chest pain with activity, Denies syncope, Denies rapid heart rate, Denies pedal edema, Denies edema, Denies leg edema, Denies lighth eadedness, Denies palpitations, Denies dyspnea, Denies dyspnea on exertion and Denies orthopnea Resp Denies cough, Denies dyspnea and Denies dyspnea on exertion GI Denies hematochezia and Denies change in stool character Musc Denies abnormal gait, Denies muscle cramps, Denies muscle weakness, Denies numbness, Denies radiating pain into limb and Denies tingling Neuro Denies abnormal gait, Denies dizziness, Denies syncope, Denies numbness, Denies tingling and Denies weakness Endo Denies palpitations Physical Exam Vital Signs: Last Vital Signs Pulse 72 02/09/25 14:09 BP 138/78 02/09/25 14:09 BMI result Body Mass Index 40.4 Const General: cooperative, healthy appearing, comfortable and no acute distress Orientation/consciousness: patient oriented x3 HEENT Head: Yes normal to inspection Neck Neck: Yes normal visual inspection, Yes trachea midline and Yes supple Chest Chest palpation & inspection: normal inspection of the chest Resp Effort & Inspection: normal respiratory effort Auscultation: clear to auscultation bilaterally, no crackles, no rales, no rhonchi and no wheezes Cardio Jugular venous distension: no JVD Palpation: normal PMI Rate: regular rate Rhythm: abnormal rhythm irregularly irregular Heart sounds: S1 normal heart sound present, S2 normal heart sound present, no click, no gallops, Murmur heart sound present systolic at the left sternal bor abida and at the right sternal border and no rubs Peripheral pulses: Peripheral pulses 2+ throughout GI Inspection: Yes normal to inspection Palpation (GI): Soft to palpation Auscultation: normal bowel sounds Skin General skin exam: no rashes or lesions noted Neuro General: patient oriented x3 Extrem General: Yes normal to inspection, No no pedal edema and No calf tenderness Psych Appearance: grossly normal Mental Status: mental status grossly normal Speech and movement: Normal speech and movement present Office Procedures EKG Details: EKG today shows AFib, rate 95 beats per minute, nonspecific STT wave abnormalities, [place]. [id number]-[id number], Complete Assessment & Plan Assessment & Plan (1) Afib: Code(s): I48.91 - Unspecified atrial fibrillation Category: Medical Plan: EKG today continues to show AFib with a controlled heart rate. The patient reports that he has been monitoring his heart rate at home, which ranges between 60s to 80s. In the previous visit, we had discussed options for rhythm control, including ablation, antiarrhythmic drugs, and cardioversion. Today we again went over these options in detail with the patient family decided against any further procedures or medications at this time. Continue Eliquis for full anticoagulation therapy. No reports of signs of bleeding or falls. We will monitor labs periodically. Continue metoprolol therapy for rate control approach. I recommended Holter monitor to further assess his heart rate but the patient has declined this as well. The patient understands to contact the office if there is any changes in his condition or if symptoms worsen and he verbalized his understanding. (2) Aortic stenosis: Code(s): I35.0 - Nonrheumatic aortic (valve) stenosis Category: Medical Plan: 02/01/2025-patient underwent an echo study that showed an EF between 55-60% with mild LVH, moderate dilation of the left atrium, hvokrzyo-[id number] aortic stenosis, mildly dilated ascending aorta. Discussed in detail the signs and symptoms of aortic stenosis. Currently asymptomatic. We will periodically repeat echoes to monitor this. (3) HTN (hypertension): Code(s): I10 - Essential (primary) hypertension Category: Medical Qualifiers: Hypertension type: primary hypertension Qualified Code(s): I10 - Essential (primary) hypertension Plan: Blood pressure today is well-controlled. Continue current regimen. Advised patient to continue monitoring blood pressures at home. Ideally, blood pressure goal less than 130/80. Advised heart healthy diet, regular exercise, losing weight, medication compliance, and aggressive management of vascular risk factors. Patient will follow-up in the office in 6 months. In the interim, patient will call us with any concerns or change in symptoms. This note was generated using voice recognition software. While every effort has been made to ensure accuracy and proper paint specialist, there may be occasional errors that could affect the content or meaning of the described symptoms. Orders: Orders AMB EKG-In Office Today I48.91 - Unspecified atrial fibrillation Basic Metabolic Panel 3 Months I48.91 - Unspecified atrial fibrillation Coding Level of Care Code Est Pt Level 4 (09049) Complex EM visit Add On G2211 Diagnoses Afib I48.91 Aortic stenosis I35.0 Primary hypertension I10 Hypertension type: primary hypertension CPT Codes EKG - CPT: 34140-[id number], Complete ([id number]) Time Spent (min) 35 Comment Time spent in reviewing the chart, test results, assessment, counseling and documentation.
[2025-02-09 14:09] VITALS: BP 138/78; PULSE 72; BMI 40.4
== END 2025-02-09 14:45 | disposition home or self-care (01) ==
LOC: HO.HCS 13:52
PROVIDERS: PCP Physician Assistant
DX: I48.91 Unspecified atrial fibrillation (principal); I35.0 Nonrheumatic aortic (valve) stenosis; I10 Essential (primary) hypertension
CPT/HCPCS: 93010; 99214; G2211

== ENCOUNTER → 2025-02-09 13:51 | Outpatient (BNVA) | payer MEDICARE, OTHER, SELFPAY | PROVIDERS: PCP Physician Assistant | DX: I48.91 Unspecified atrial fibrillation (principal); I10 Essential (primary) hypertension; I35.0 Nonrheumatic aortic (valve) stenosis | CPT/HCPCS: 93005; 99212 ==

== ENCOUNTER 2025-03-20 10:11 | Outpatient (AMB) | payer MEDICARE, OTHER, SELFPAY ==
--- NOTE | 2025-03-20 10:22 | A.OFFPC_ITS ---
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 Patient has a past medical history significant for AFib, aortic stenosis, obesity, hypertension. .. AFIB: Patient recently diagnosed with AFib and has been started on metoprolol for rate control and Eliquis for anticoagulation. He denies any signs of overt bleeding. .. Aortic stenosis: Most recent echocardiogram showing moderate to severe aortic stenosis. Does have grade 2 3 systolic murmur on physical exam. No overt signs of heart failure noted Hypertension: Blood pressure remains elevated today in office . Has been on hydrochlorothiazide 12.5 without side effect. We discussed increasing his hydrochlorothiazide to 25 though would like to hold off on this for now. Of note patient's recent echocardiogram showing mild LVH and we discussed this is likely secondary to either is hypertension or aortic stenosis. We also did discuss doing home sleep study to evaluate for obstructive sleep apnea. He does admit to some difficulty breathing and apneic episodes at night. [facility] Surgical History No pertinent past surgical history Social History Housing: Apartment Alcohol intake: never Patient Tobacco Use Status: Never used Tobacco e-Cigarette/Vaping Use: Never Used service: No Current occupational status: retired Cognitive needs: No Hearing needs: Yes Vision needs: No Questionnaire PHQ-9 Over the last 2 weeks, how often have you been bothered by any of the following problems? 1. Little interest or pleasure in doing things: not at all 2. Feeling down, depressed, or hopeless: not at all 3. Trouble falling or staying asleep, or sleeping too much: not at all 4. Feeling tired or having little energy: not at all 5. Poor appetite or overeating: not at all 6. Feeling bad about yourself - or that you are a failure or have let yourself or your family down: not at all 7. Trouble concentrating on things, such as reading the newspaper or watching television: not at all 8. Moving or speaking so slowly that other people could have noticed. Or the opposite - being so fidgety or restless that you have been moving around a lot more than usual: not at all 9. Thoughts that you would be better off or of hurting yourself in some way: not at all Total score: 0 Depression Screening Interpretation: Negative Depression Screening Done: Yes 51479 - PHQ-9 Billing: Yes Source: Developed by Drs. Bobby Mark, Honey Lugo, Jermaine Arrieta and colleagues, with an educational mariano from [employer]. Thrive Questionnaire Date Thrive assessed: 03/20/25 I am a: Patient What is your living situation today?: I choose not to answer this question Within the past 12 months, did the food you bought not last and you didn't have the money to get more?: I choose not to answer this question Within the past 12 months, did you worry whether your food would run out before you got money to buy more?: I choose not to answer this question Do you have trouble paying for medicines?: I choose not to answer this question Do you have trouble getting transportation to medical appointments?: I choose not to answer this question Do you have trouble paying your heating and electricity bill?: I choose not to answer this question Do you have trouble taking care of your child, family member or friend?: I choose not to answer this question Do you have trouble with day-to-day activities such as bathing, preparing meals, shopping, managing finances, etc.?: I choose not to answer this question Are you currently unemployed and looking for a job?: I choose not to answer this question Are you interested in more education?: I choose not to answer this question Please select the resources that you would like help with: None Currently or been in a relationship where the following occur: I choose not to answer THRIVE Score: 0 AUDIT C Alcohol Use Questionnaire (AUDIT-C) 1. How often do you have a drink containing alcohol?: Never 3. How often do you have six or more drinks on one occasion?: Never Total Score: 0 MATTHEW-7 AMB Questionnaire MATTHEW-7 Date MATTHEW - 7 assessed: 03/20/25 Feeling nervous, anxious, or on edge: 0 = Not at all Not being able to stop or control worryin = Not at all Worrying too much about different things: 0 = Not at all Trouble relaxin = Not at all Being so restless that it is hard to sit still: 0 = Not at all Becoming easily annoyed or irritable: 0 = Not at all Feeling afraid as if something awful might happen: 0 = Not at all Total MATTHEW-7 score (0-4 normal; 5-9 mild; 10-14 moderate; 15-21 severe): 0 Source: Developed by Drs. Bobby Mark, Honey Lugo, Jermaine Arrieta and colleagues, with an educational mariano from [employer]. MATTHEW-7 Assessment Billing MATTHEW-7 Assessment Tool: MATTHEW-7 Assessment 40776 Review of Systems Const Denies headache(s) Eyes Denies loss of vision ENT Denies vertigo, Denies dizziness, Denies headache(s) and Denies sore throat Card Denies chest pain, Denies leg edema and Denies lightheadedness Resp Denies cough, Denies hemoptysis and Denies wheezing GI Denies abdominal pain, Denies melena, Denies constipation, Denies diarrhea and D enies vomiting Denies dysuria, Denies urinary frequency and Denies urinary urgency Musc Denies arthralgias, Denies joint swelling, Denies numbness and Denies tingling Neuro Denies Abnormal speech present, Denies behavioral changes, Denies vertigo, Denies dizziness, Denies headache(s), Denies loss of vision, Denies memory loss, Denies numbness and Denies tingling Psych Denies anxiety, Denies behavioral changes, Denies depression, Denies memory loss and Denies panic attacks Zoltan/Lymph Denies easy bleeding and Denies easy bruising Aller/Immun Denies wheezing Physical exam (Primary Care) Vital Signs: Last Vital Signs Temp 97.3 F 03/20/25 10:26 Pulse 70 03/20/25 10:26 BP 138/90 H 03/20/25 10:26 Pulse Ox 99 03/20/25 10:26 Oxygen Delivery Method Room Air 03/20/25 10:26 BMI result Body Mass Index 40.6 BMI Assessment/Plan discussion: High BMI High, discussed plan: lifestyle, weight reduction, dietary and physical activity Tobacco/Smoking Status: Tobacco use Status Tobacco use date assessed 01/09/25 03/20/25 10:24 Patient Tobacco Use Status Never used Tobacco 03/20/25 10:24 e-Cigarette/Vaping Use Never Used 03/20/25 10:24 PHQ-9: PHQ-9 Score PHQ-9: Total score 0 03/20/25 10:38 Depression Screening Interpretation: Negative Thrive Assessment: Date of Thrive Assessment Date Thrive assessed 03/20/25 03/20/25 10:24 Currently or been in a relationship where the following occur: I choose not to answer Const General: healthy appearing, no acute distress, alert and awake Nutritional Appearance: well nourished Orientation/consciousness: oriented to person, oriented to place and oriented to time HENMT Ears: TM's normal bilaterally General nose exam: Normal nasal mucous membranes and turbinates present Eyes Conjunctivae: conjunctivae normal Sclerae: sclerae normal Pupils: Equal, round and reactive pupils present Neck Neck: Yes no lymphadenopathy and Yes no JVD Thyroid: Thyroid normal Carotids: no bruits Resp Effort & Inspection: normal respiratory effort and not tachypneic Auscultation: no crackles, no rales, no rhonchi and no wheezes Cardio Rate: regular rate Rhythm: regular rhythm Heart sounds: no murmurs and normal S1 and S2 GI Palpation (GI): Soft to palpation, nontender, no hepatomegaly and no splenomegaly Auscultation: normal bowel sounds Skin General skin exam: no rashes or lesions noted and dry skin Neuro General: oriented to person, oriented to place and oriented to time Cranial nerves: Yes Equal, round and reactive pupils present Speech: No Abnormal speech present Gait exam (Neuro): Normal gait present Motor exam (neuro): no tremor noted Extrem Right upper extremity: full ROM Left upper extremity: full ROM Right lower extremity: full ROM; no edema Left lower extremity: full ROM; no edema Psych Mental Status: mental status grossly normal Speech and movement: Normal speech and movement present Affect: normal affect Attitude: cooperative Thought process: Normal thought process present Coding Level of Care Code Est Pt Level 4 (27280) Diagnoses Permanent atrial fibrillation I48.21 Atrial fibrillation type: permanent Primary hypertension I10 Hypertension type: primary hypertension FARAZ (obstructive sleep apnea) G47.33 Class 3 obesity E66.813 Additional Codes MATTHEW-7 Assessment Billing - MATTHEW-7 Assessment Tool: MATTHEW-7 Assessment 11619 ([id number]) PHQ-9 - 34427 - PHQ-9 Billing: Yes ([id number]) Assessment & Plan Assessment & Plan (1) Afib: Code(s): I48.91 - Unspecified atrial fibrillation Category: Medical Qualifiers: Atrial fibrillation type: permanent Qualified Code(s): I48.21 - Permanent atrial fibrillation Plan: Patient followed by [facility]. Continues to be rate controlled with metoprolol and under anticoagulation with Eliquis. He does report his shortness of breath and dizziness and much better since being treated for his AFib. Physical exam does still note irregular rhythm and an aortic stenosis murmur. No overt signs of Congestive heart failure noted. (2) HTN (hypertension): Code(s): I10 - Essential (primary) hypertension Category: Medical Qualifiers: Hypertension type: primary hypertension Qualified Code(s): I10 - Essential (primary) hypertension Plan: Patient's blood pressure is still slightly elevated. Advised on increasing his hydrochlorothiazide to 25 for better blood pressure control though will like to of on this for now and work on dietary and lifestyle modifications. Of note echocardiogram does show signs of mild LVH. (3) FARAZ (obstructive sleep apnea): Code(s): G47.33 - Obstructive sleep apnea (adult) (pediatric) Category: Medical Plan: Patient does report some apneic episodes at night. We did discuss perhaps doing a sleep study to evaluate for obstructive sleep apnea which I suspect though patient would like to hold off on this for now. (4) Class 3 obesity: Code(s): E66.813 - Obesity, class 3 Category: Medical Plan: Patient does understand his BMI is over 40. We did discuss the need to be more physically active and adapt to better eating habits to reduce his weight though he is somewhat reluctant to this.
[2025-03-20 10:26] VITALS: BP 138/90; PULSE 70; TEMP 36.3; O2SAT 99; BMI 40.6
== END 2025-03-20 10:51 | disposition home or self-care (01) ==
LOC: HO.HMCH 10:12
PROVIDERS: Visit Provider Physician Assistant
DX: I48.21 Permanent atrial fibrillation (principal); E66.813 Obesity, class 3; Z68.41 Body mass index [BMI] 40.0-44.9, adult; I10 Essential (primary) hypertension; G47.33 Obstructive sleep apnea (adult) (pediatric)

== ENCOUNTER → 2025-03-20 10:11 | Outpatient (BNVA) | payer MEDICARE, OTHER, SELFPAY | PROVIDERS: Visit Provider Physician Assistant | DX: I48.21 Permanent atrial fibrillation (principal); I10 Essential (primary) hypertension; G47.33 Obstructive sleep apnea (adult) (pediatric); E66.813 Obesity, class 3; Z68.41 Body mass index [BMI] 40.0-44.9, adult; Z71.3 Dietary counseling and surveillance | CPT/HCPCS: 96127; 99212 ==

== ENCOUNTER 2025-05-16 07:55 | Outpatient (REF) | payer MEDICARE, OTHER, SELFPAY ==
[2025-05-16 10:59] LABS: Anion Gap 12 (12-20); Blood Urea Nitrogen 26 mg/dL (9-16); Calcium 8.9 mg/dL (8.4-10.2); Carbon Dioxide 25 mmol/L (22-29); Chloride 108 mmol/L (96-108); Estimated Glomerular Filt Rate > 60; Potassium 3.9 mmol/L (3.3-5.1); Sodium 141 mmol/L (135-145)
== END 2025-05-16 07:56 | disposition home or self-care (01) ==
LOC: HO.HMGCLDS 07:55
PROVIDERS: PCP Physician Assistant
DX: I48.91 Unspecified atrial fibrillation (principal)
CPT/HCPCS: 36415; 80048

== ENCOUNTER 2025-08-02 13:43 | Outpatient (AMB) | payer MEDICARE, OTHER, SELFPAY ==
[2025-08-02 14:28] VITALS: BP 140/68; PULSE 110; BMI 39.9
--- NOTE | 2025-08-02 14:28 | A.OFFVIS_ITS ---
Vital Signs 08/02/25 14:28 Height 5 ft 7 in Weight 254 lb 13.67 oz BMI 39.9 BP 140/68 H Blood Pressure Location Lt brachial Position Sitting Pulse 110 H Pulse Source Monitor Intake Visit Reasons: 6m follow up Accompanied by: Self / Same As Patient Allergies No Known Allergies Allergy (Verified 08/02/25 14:32) Medication List - Last Reconciled 08/02/25 by Rogelio Chahal NP apixaban (Eliquis) 5 mg PO BID 90 days hydrochlorothiazide 12.5 mg PO DAILY 90 days metoprolol succinate ER 50 mg PO DAILY HPI Comments Details: This is a 69-year-old male patient coming in for a follow-up visit. Patient with a history of hypertension, aortic stenosis, and persistent AFib. Today, patient is reporting compliance with all his medications and is denying any exertional chest pain, shortness of breath, palpitations, dizziness, orthopnea, PND, leg edema, presyncope or syncope. Patient notes that his shortness of breath has significantly improved since the initial diagnosis of AFib. Patient makes a note that he is heart rate and blood pressures has been stable in the normal limits at home. [facility] Surgical History No pertinent past surgical history Social History Housing: Apartment Alcohol intake: never Patient Tobacco Use Status: Never used Tobacco e-Cigarette/Vaping Use: Never Used service: No Current occupational status: retired Cognitive needs: No Hearing needs: Yes Vision needs: No Review of Systems Const Denies daytime sleepiness, Denies difficulty sleeping, Denies snoring, Denies stops breathing during sleep and Denies weakness Card Denies chest pain, Denies rapid heart rate, Denies irregular heart rhythm, Denies claudication, Denies leg edema, Denies lightheadedness, Denies palpitations, Reports dyspnea, Denies dyspnea on exertion, Denies orthopnea, Denies paroxysmal nocturnal dyspnea and Denies slow heart rate Resp Denies cough, Reports dyspnea, Denies dyspnea on exertion and Denies snoring GI Reports no additional complaints, Denies hematochezia, Denies change in stool character and Denies dyspepsia Musc Denies abnormal gait, Denies muscle weakness and Denies numbness Neuro Denies abnormal gait, Denies numbness and Denies weakness Endo Denies palpitations Physical Exam Vital Signs: Last Vital Signs Pulse 110 H 08/02/25 14:28 BP 140/68 H 08/02/25 14:28 BMI result Body Mass Index 39.9 Const General: cooperative, healthy appearing, comfortable and no acute distress Orientation/consciousness: patient oriented x3 HEENT Head: Yes normal to inspection Neck Neck: Yes normal visual inspection, Yes trachea midline and Yes supple Chest Chest palpation & inspection: normal inspection of the chest Resp Effort & Inspection: normal respiratory effort Auscultation: clear to auscultation bilaterally, no crackles, no rales, no rhonchi and no wheezes Cardio Jugular venous distension: no JVD Palpation: normal PMI Rate: tachycardic Rhythm: abnormal rhythm irregularly irregular Heart sounds: S1 normal heart sound present, S2 normal heart sound present, no click, no gallops, Murmur heart sound present systolic at the left sternal border and at the right sternal border and no rubs Peripheral pulses: Peripheral pulses 2+ throughout GI Inspection: Yes normal to inspection Palpation (GI): Soft to palpation Auscultation: normal bowel sounds Skin General skin exam: no rashes or lesions noted Neuro General: patient oriented x3 Extrem General: Yes normal to inspection, No no pedal edema and No calf tenderness Psych Appearance: grossly normal Mental Status: mental status grossly normal Speech and movement: Normal speech and movement present Office Procedures EKG Details: EKG today showed atrial fibrillation with a rate at 110 beats per minute, presence of Q-wave suggestive of old inferior infarct, nonspecific STT wave, [place]. [id number], Complete Assessment & Plan Assessment & Plan (1) Afib: Code(s): I48.91 - Unspecified atrial fibrillation Category: Medical Qualifiers: Atrial fibrillation type: permanent Qualified Code(s): I48.21 - Permanent atrial fibrillation Plan: EKG today continues to show AFib with an elevated heart rate at 110. Recommended increasing metoprolol for rate control however patient refusing any changes in medications at this time. Patient is adamant that his blood pressures and heart rates has been stable at home. We recommended getting a Holter study to look at rate control however, patient refusing of this as well. Discussed in detail the risks of having elevated heart rates as well as blood pressures for a long period of time and its consequences. Patient verbalizes understanding. Continue Eliquis for full anticoagulation. No reported signs of bleeding or falls. Recent labs with stable kidney function. Discussed again about options for rhythm control however patient continues to refuse any procedures or medication changes. The patient understands to contact the office if there is any changes in his condition or if symptoms worsen and patient verbalizes understanding. (2) Aortic stenosis: Code(s): I35.0 - Nonrheumatic aortic (valve) stenosis Category: Medical Plan: 02/01/2025-patient underwent an echo study that showed an EF between 55-60% with mild LVH, moderate dilation of the left atrium, [id number] aortic stenosis, mildly dilated ascending aorta. Discussed in detail the signs and symptoms of aortic stenosis. Clinically stable and euvolemic. Discussed about repeating an echo to which patient is refusing as well. (3) HTN (hypertension): Code(s): I10 - Essential (primary) hypertension Category: Medical Qualifiers: Hypertension type: primary hypertension Qualified Code(s): I10 - Essential (primary) hypertension Plan: Blood pressure is elevated today however patient reports that blood pressures has been stable at home systolically in the 120s. Since patient is hesitant on any medication changes at this time, continue current regimen. Advised monitoring blood pressures at home with a goal less than 130/80. Advised heart healthy diet, regular exercise, losing weight, medication compliance, and aggressive management of vascular risk factors. Patient will follow-up in the office in 6 months. In the interim, patient will call us with any concerns or change in symptoms. This note was generated using voice recognition software. While every effort has been made to ensure accuracy and proper supervising law enforcement analyst, there may be occasional errors that could affect the content or meaning of the described symptoms. Orders: Orders Complete Blood Count no Diff 6 Months I48.21 - Permanent atrial fibrillation AMB EKG-In Office Today I48.21 - Permanent atrial fibrillation Basic Metabolic Panel 6 Months I48.21 - Permanent atrial fibrillation Coding Level of Care Code Est Pt Level 4 (06541) Complex EM visit Add On G2211 Diagnoses Permanent atrial fibrillation I48.21 Atrial fibrillation type: permanent Aortic stenosis I35.0 Primary hypertension I10 Hypertension type: primary hypertension CPT Codes EKG - CPT: [id number], Complete ([id number]) Time Spent (min) 31 Comment Time spent in reviewing the chart, test results, assessment, counseling and documentation.
== END 2025-08-02 14:50 | disposition home or self-care (01) ==
LOC: HO.HCS 13:44
PROVIDERS: PCP Physician Assistant
DX: I48.21 Permanent atrial fibrillation (principal); I35.0 Nonrheumatic aortic (valve) stenosis; I10 Essential (primary) hypertension
CPT/HCPCS: 93010; 99214; G2211

== ENCOUNTER → 2025-08-02 13:43 | Outpatient (BNVA) | payer MEDICARE, OTHER, SELFPAY | PROVIDERS: PCP Physician Assistant | DX: I48.21 Permanent atrial fibrillation (principal); I35.0 Nonrheumatic aortic (valve) stenosis; I10 Essential (primary) hypertension; R94.31 Abnormal electrocardiogram [ECG] [EKG] | CPT/HCPCS: 93005; 99212 ==

== ENCOUNTER 2025-08-07 09:37 | Outpatient (AMB) | payer MEDICARE, OTHER, SELFPAY ==
[2025-08-07 09:39] VITALS: BP 148/82; PULSE 84; RESP 18; TEMP 36.2; O2SAT 98; BMI 39.6
--- NOTE | 2025-08-07 09:39 | A.OFFPC_ITS ---
Vital Signs 08/07/25 09:39 Height 5 ft 7 in Weight 253 lb BMI 39.6 BP 148/82 H Blood Pressure Location Rt brachial Position Sitting Respiration 18 Pulse 84 Pulse Source Pulse Oximeter Temp 97.1 F Temp Source Temporal Artery Scan Pulse Oximetry (%) 98 Oxygen Delivery Method Room Air Intake Visit Reasons: f/u HTN Parimutuel Ticket Checker Required: No Accompanied by: Self / Same As Patient Allergies No Known Allergies Allergy (Verified 08/07/25 09:56) Medication List - Last Reconciled 08/07/25 by Darwin Nieves PA-C apixaban (Eliquis) 5 mg PO BID 90 days hydrochlorothiazide 12.5 mg PO DAILY 90 days metoprolol succinate ER 50 mg PO DAILY Tobacco use date assessed: 08/07/25 Fall risk assessment: No Falls in past year Last assessed Fall Risk: 08/07/25 Dental Screening Dental Screen Date: 08/07/25 Did you have a dental visit in the last 12 months?: No Did you have a dental problem in the last 6 months where you did not have access to dental care?: No Was dental information given to patient?: No HPI f/u HTN HPI Details Patient is a 69-year-old male here today for follow-up visit. Patient has a past medical history significant for AFib, aortic stenosis, obesity, hypertension. .. AFIB: Patient recently diagnosed with AFib and has been started on metoprolol for rate control and Eliquis for anticoagulation. He denies any signs of overt bleeding. Still has irregular rhythm on physical exam, he denies any palpitations or shortness of breath .. Aortic stenosis: Most recent echocardiogram showing moderate to severe aortic stenosis. Does have grade 2 3 systolic murmur on physical exam. No overt signs of heart failure noted. Believes his symptoms of orthopnea nitro related to his aortic stenosis. He is not interested in further testing for sleep apnea. OF NOTE HAS A BROTHER WHOM HAS HEART VALVE ISSUE IN IS DUE FOR VALVE REPLACEMENT THIS WEEK. Hypertension: Blood pressure remains elevated today in office . Has been on hydrochlorothiazide 12.5 without side effect. He reports his blood pressures at home are around 140 systolic. We discussed increasing his hydrochlorothiazide to 25 though would like to hold off on this for now. Of note patient's recent echocardiogram showing mild LVH and we discussed this is likely secondary to either is hypertension or aortic stenosis. [facility] Surgical History No pertinent past surgical history Family History (Updated 08/07/25 @ 10:33 by Darwin Nieves PA-C) Brother Valvular heart disease Social History Housing: Apartment Alcohol intake: never Patient Tobacco Use Status: Never used Tobacco e-Cigarette/Vaping Use: Never Used service: No Current occupational status: retired Cognitive needs: No Hearing needs: Yes Vision needs: No Questionnaire Thrive Questionnaire Date Thrive assessed: 03/20/25 I am a: Patient What is your living situation today?: I choose not to answer this question Within the past 12 months, did the food you bought not last and you didn't have the money to get more?: I choose not to answer this question Within the past 12 months, did you worry whether your food would run out before you got money to buy more?: I choose not to answer this question Do you have trouble paying for medicines?: I choose not to answer this question Do you have trouble getting transportation to medical appointments?: I choose not to answer this question Do you have trouble paying your heating and electricity bill?: I choose not to answer this question Do you have trouble taking care of your child, family member or friend?: I choose not to answer this question Do you have trouble with day-to-day activities such as bathing, preparing meals, shopping, managing finances, etc.?: I choose not to answer this question Are you currently unemployed and looking for a job?: I choose not to answer this question Are you interested in more education?: I choose not to answer this question Please select the resources that you would like help with: None Currently or been in a relationship where the following occur: I choose not to a nswer THRIVE Score: 0 MATTHEW-7 AMB Questionnaire MATTHEW-7 Date MATTHEW - 7 assessed: 03/20/25 Source: Developed by Drs. Bobby Mark, Honey Lugo, Jermaine Arrieta and colleagues, with an educational mariano from [employer]. Review of Systems Const Denies headache(s) Eyes Denies loss of vision ENT Denies vertigo, Denies dizziness, Denies headache(s) and Denies sore throat Card Denies chest pain, Denies leg edema and Denies lightheadedness Resp Denies cough, Denies hemoptysis and Denies wheezing GI Denies abdominal pain, Denies melena, Denies constipation, Denies diarrhea and Denies vomiting Denies dysuria, Denies urinary frequency and Denies urinary urgency Musc Denies arthralgias, Denies joint swelling, Denies numbness and Denies tingling Neuro Denies Abnormal speech present, Denies behavioral changes, Denies vertigo, Denies dizziness, Denies headache(s), Denies loss of vision, Denies memory loss, Denies numbness and Denies tingling Psych Denies anxiety, Denies behavioral changes, Denies depression, Denies memory loss and Denies panic attacks Zoltan/Lymph Denies easy bleeding and Denies easy bruising Aller/Immun Denies wheezing Physical exam (Primary Care) Vital Signs: Last Vital Signs Temp 97.1 F 08/07/25 09:39 Pulse 84 08/07/25 09:39 Resp 18 08/07/25 09:39 BP 148/82 H 08/07/25 09:39 Pulse Ox 98 08/07/25 09:39 Oxygen Delivery Method Room Air 08/07/25 09:39 BMI result Body Mass Index 39.6 BMI Assessment/Plan discussion: High BMI High, discussed plan: lifestyle, weight reduction, dietary and physical activity Tobacco/Smoking Status: Tobacco use Status Tobacco use date assessed 08/07/25 08/07/25 09:49 Patient Tobacco Use Status Never used Tobacco 08/07/25 09:49 e-Cigarette/Vaping Use Never Used 08/07/25 09:49 Thrive Assessment: Date of Thrive Assessment Date Thrive assessed 03/20/25 08/07/25 09:49 Currently or been in a relationship where the following occur: I choose not to answer Const General: healthy appearing, no acute distress, alert and awake Nutritional Appearance: well nourished Orientation/consciousness: oriented to person, oriented to place and oriented to time HENMT Ears: TM's normal bilaterally General nose exam: Normal nasal mucous membranes and turbinates present Eyes Conjunctivae: conjunctivae normal Sclerae: sclerae normal Pupils: Equal, round and reactive pupils present Neck Neck: Yes no lymphadenopathy and Yes no JVD Thyroid: Thyroid normal Carotids: no bruits Resp Effort & Inspection: normal respiratory effort and not tachypneic Auscultation: no crackles, no rales, no rhonchi and no wheezes Cardio Rate: regular rate Rhythm: regular rhythm Heart sounds: no murmurs and normal S1 and S2 GI Palpation (GI): Soft to palpation, nontender, no hepatomegaly and no splenomegaly Auscultation: normal bowel sounds Skin General skin exam: no rashes or lesions noted and dry skin Neuro General: oriented to person, oriented to place and oriented to time Cranial nerves: Yes Equal, round and reactive pupils present Speech: No Abnormal speech present Gait exam (Neuro): Normal gait present Motor exam (neuro): no tremor noted Extrem Right upper extremity: full ROM Left upper extremity: full ROM Right lower extremity: full ROM; no edema Left lower extremity: full ROM; no edema Psych Mental Status: mental status grossly normal Speech and movement: Normal speech and movement present Affect: normal affect Attitude: cooperative Thought process: Normal thought process present Coding Level of Care Code Est Pt Level 4 (10037) Diagnoses Permanent atrial fibrillation I48.21 Atrial fibrillation type: permanent Primary hypertension I10 Hypertension type: primary hypertension Class 3 obesity E66.813 Nonrheumatic aortic valve stenosis I35.0 Cardiac valve disease etiology: nonrheumatic Assessment & Plan Assessment & Plan (1) Afib: Code(s): I48.91 - Unspecified atrial fibrillation Category: Medical Qualifiers: Atrial fibrillation type: permanent Qualified Code(s): I48.21 - Permanent atrial fibrillation Plan: Patient followed by [facility]. Continues to be rate controlled with metoprolol and under anticoagulation with Eliquis. He does report his shortness of breath and dizziness and much better since being treated for his AFib. Physical exam does still note irregular rhythm and an aortic stenosis murmur. No overt signs of Congestive heart failure noted. (2) HTN (hypertension): Code(s): I10 - Essential (primary) hypertension Category: Medical Qualifiers: Hypertension type: primary hypertension Qualified Code(s): I10 - Ess ential (primary) hypertension Plan: Patient's blood pressure is still slightly elevated. Advised on increasing his hydrochlorothiazide to 25 or metoprolol dose for better blood pressure control though will like to of on this for now and work on dietary and lifestyle modifications. Of note echocardiogram does show signs of mild LVH. (3) Class 3 obesity: Code(s): E66.813 - Obesity, class 3 Category: Medical Plan: Patient does understand his BMI is over 40. We did discuss the need to be more physically active and adapt to better eating habits to reduce his weight though he is somewhat reluctant to this. (4) Aortic stenosis: Code(s): I35.0 - Nonrheumatic aortic (valve) stenosis Category: Medical Qualifiers: Cardiac valve disease etiology: nonrheumatic Qualified Code(s): I35.0 - Nonrheumatic aortic (valve) stenosis Plan: Patient continues to follow [facility]. He is somewhat interested in getting a 2nd opinion from a new folder inspector about his cardiac conditions. Continues to have cardiac murmur on physical exam. No overt signs of Congestive heart failure. Orders: Orders Comprehensive [place]. Panel Fast Today I10 - Essential (primary) hypertension Complete Blood Count no Diff Today I10 - Essential (primary) hypertension Lipid Panel Today I35.0 - Nonrheumatic aortic (valve) stenosis Prostate Specific Antigen Scr Today I35.0 - Nonrheumatic aortic (valve) stenosis, Z12.5 - Encounter for screening for malignant neoplasm of prostate Microalbumin, Random (w Creat) Today I10 - Essential (primary) hypertension
== END 2025-08-07 11:05 | disposition home or self-care (01) ==
LOC: HO.HMCH 09:37
PROVIDERS: Visit Provider Physician Assistant
DX: I48.21 Permanent atrial fibrillation (principal); I10 Essential (primary) hypertension; E66.813 Obesity, class 3; Z68.39 Body mass index [BMI] 39.0-39.9, adult; I35.0 Nonrheumatic aortic (valve) stenosis

== ENCOUNTER → 2025-08-07 09:37 | Outpatient (BNVA) | payer MEDICARE, OTHER, SELFPAY | PROVIDERS: Visit Provider Physician Assistant | DX: I10 Essential (primary) hypertension (principal); I48.91 Unspecified atrial fibrillation; I35.0 Nonrheumatic aortic (valve) stenosis; I48.21 Permanent atrial fibrillation; E66.813 Obesity, class 3; Z68.39 Body mass index [BMI] 39.0-39.9, adult | CPT/HCPCS: 99212 ==

== ENCOUNTER → 2025-09-27 12:47 | Outpatient (REF) | payer MEDICARE, OTHER, SELFPAY ==
--- NOTE | 2025-09-27 12:50 | HM_ITS ---
* Total monitoring time 3 days. * Underlying rhythm is atrial fibrillation with an average rate of 90/Min. About 20% of the time, rate > 100/Min. * Rare ventricular ectopy. Rare couplets and triplets. One episode of 5 beats. * No significant pauses or high-grade AV blocks. * Shortness of breath in patient diary correlates with atrial fibrillation with rapid rate as well as controlled rate. MTDD
--- NOTE | 2025-09-27 12:50 | CA_ITS ---
Transthoracic Echocardiogram Patient (Last, First, Middle): Oseas Baig Gender: Carol Date of : 1955 Age: 69 Procedure Date: 09/27/2025 Procedure Type: Transthoracic Echocardiogram Location: OP Height: 170.18 cm Weight: 114.76 kg BSA: 2.23 m2 Heart Rate: bpm BP: 148 / 82 mmHg Senior Energy Consultant: KAVITHA Referring MD: Vandana Jenkins CEMENT [employer]RO[employer] LOADER-C Receptionist Nurse: Erick Davies MD Symptoms: I35.0 - Nonrheumatic aortic (valve) stenosis Study Quality: Technically Difficult, contrast ECG Rhythm: Atrial Fibrillation Conclusions: - 1. Normal LV ejection fraction of 60 65% 2. Moderately dilated left atrium 3. Severe aortic stenosis with maximum mean gradient of 40 mm Hg 4. Normal RV systolic pressure 5. Mildly dilated ascending aorta 3.9 cm Findings Procedure Information Contrast agent, definity, is being given per protocol without apparent complications. Left Ventricle Normal left ventricular size, thickness, and systolic function. The visually estimated ejection fraction is between 60-65%. Diastolic function is indeterminate on the basis of available data. Right Ventricle The right ventricle was not well visualized. Mildly increased right ventricular cavity size. Atria The left atrium is moderately dilated. Interatrial shunt cannot be excluded. The right atrium was not well visualized. Aortic Valve The aortic valve was not well visualized. There is moderate calcification of the aortic valve. There is severe aortic valve stenosis. The mean gradient is 40 mmHg. The aortic valve area is 0.98 cm2. Mitral Valve The mitral valve was not well visualized. There is no mitral valve regurgitation. There is no mitral valve stenosis. Pulmonic Valve The pulmonic valve was not well visualized. Tricuspid Valve The tricuspid valve was not well visualized. The right ventricular systolic pressure is normal. The right ventricular systolic pressure is 25 mmHg. There is no evidence of pulmonary hypertension. Great Vessels The aorta was not well visualized. The pulmonary artery was not well visualized. There is mild dilatation of the ascending aorta measuring 3.90 cm. Venous The inferior vena cava is normal in size. Pericardium/Pleural The pericardium was not well visualized. Prior Study Comparison Changes noted compared to prior study dated: 02/01/2025. aortic stenosis appears to be severe Measurements 2D Linear Measurements IVSd: 1.06 0.6-0.9/0.6-1.0 cm LVIDd: 4.20 3.9-5.3/4.2-5.9 cm LVIDd Index: 1.88 2.4-3.2/2.2-3.1 cm/m2 LVIDs: 3.10 2.0-3.6 cm LVPWd: 1.12 0.7-1.1 cm LA Diam: 3.90 2.7-3.8/3.0-4.0 cm LAIDs Index: 1.75 1.5-2.3 cm/m2 LV Mass: 193.03 67-162/88-224 g LV Mass Index: 86.56 43-95/49-115 g/m2 LVOT Diam: 2.20 3.0+(-)1.3 cm 2D Systolic Function EF 4C: 58.30 >55% EF 2C: 65.70 >55% EF BiP: 63.50 >55% Mitral Valve MV Pk E: 0.92 MV Decel Time: 192.00 E'Lateral: 9.96 E'Medial: 7.88 E/E' Med: 11.70 E/E' Lat: 9.20 PHT: 56.00 MVA PHT: 3.93 Decel Dickens: 4.81 Aortic Valve AoV Pk Huber: 3.71 AoV Mn Huber: 2.75 AoV VTI: 0.78 AoV Pk Grad: 67.00 Aov Mn Grad: 40.00 CHAZ Cont.VTI: 0.98 LVOT LVOT Pk Huber: 0.97 LVOT Mn Huber: 0.70 LVOT VTI: 0.24 LVOT Pk Grad: 4.00 LVOT Mn Grad: 2.00 LVOT Diam: 2.20 LVOT Area: 3.80 Diastolic Function MV Pk E: 0.92 E'Medial: 7.88 E/E' Med: 11.70 E' Laterial: 9.96 E/E' Lat: 9.20 Right Ventricle TAPSE (mm): 17.80 TVS' Huber: 10.00 Tricuspid Valve TR Pk Huber: 2.36 TR Pk Grad: 22.00 RA Press: 3.00 RVSP: 25.00 Great Vessels Aorta Sinus of Valsalva: 3.02 2.0-3.[address] Ridge: 2.83 1.7-3.4 cm Ao Asc: 3.90 2.1-3.4 cm Ao Arch: 3.40 Updated in Other Vendor System with Status of Final Erick Davies MD electronically signed on 09/27/2025 6:49:26 PM with status of Final
== END ==
LOC: HO.CARD 12:47
PROVIDERS: PCP Physician Assistant; Visit Provider Nurse Practitioner Family
DX: I48.21 Permanent atrial fibrillation (principal); I35.0 Nonrheumatic aortic (valve) stenosis
CPT/HCPCS: 93242; 93306; Q9957

== ENCOUNTER → 2025-09-27 12:50 | Outpatient (BNV) | payer MEDICARE, OTHER, SELFPAY | PROVIDERS: PCP Physician Assistant; Visit Provider Internal Medicine Cardiovascular Disease | DX: I35.0 Nonrheumatic aortic (valve) stenosis (principal); I51.7 Cardiomegaly; I77.810 Thoracic aortic ectasia | CPT/HCPCS: 93306 ==

== ENCOUNTER 2025-10-04 10:37 | Outpatient (AMB) | payer MEDICARE, OTHER, SELFPAY ==
[2025-10-04 10:54] VITALS: BP 130/72; PULSE 89; BMI 40.7
--- NOTE | 2025-10-04 10:54 | MHC.OFFVIS ---
Vital Signs 10/04/25 10:54 Height 5 ft 7 in Weight 259 lb 11.272 oz BMI 40.7 BP 130/72 Blood Pressure Location Lt brachial Position Sitting Pulse 89 Pulse Source Monitor Intake Visit Reasons: f/up-echo Intake Note: f/up- echo [employer] Hat[employer] Specialist Required: No Accompanied by: Self / Same As Patient Allergies No Known Allergies Allergy (Verified 08/07/25 09:56) Medication List - Last Reconciled 10/04/25 by Kamaljit Mabry MD apixaban (Eliquis) 5 mg PO BID 90 days hydrochlorothiazide 12.5 mg PO DAILY 90 days metoprolol succinate ER 75 mg (1.5 x 50 mg) PO DAILY 90 days HPI Comments Details: [age] year gentleman who is here for assessment of severe aortic valve stenosis. He has known history of persistent atrial fibrillation which is rate controlled with metoprolol succinate 75 mg daily. He is on Eliquis for anticoagulation. Also has background of hypertension and has been taking hydrochlorothiazide. His blood pressure readings at home are anywhere from 120s to 140s and his heart rates are below 90 beats per minute. He is denying any palpitations. His main complaint is shortness of breath which has been ongoing for couple of years with worsening over the last year. He gets orthopnea like episodes when he is laying down and he has to sit up. He is quite distressed by this. He is also getting shortness of breath with activities and his functional capacity has gone down significantly. He occasionally gets chest discomfort. He has never had syncope or presyncope before. He is saying his brother had aortic valve stenosis and underwent valve replacement surgically recently. He is saying that he had a murmur event 25 years ago. Echocardiography reviewed which is showing mean gradient 40 mm Hg with aortic valve area of 0.98 cm2. His gradients obviously are variable due to atrial fibrillation. It appears he was advised to undergo cardioversion in the past but he was not agreeable for that. We discussed again about that and he needs some more time to think about that. He is denying any peripheral edema. [facility] Surgical History No pertinent past surgical history Family History Brother Valvular heart disease Social History Housing: Apartment Alcohol intake: never Patient Tobacco Use Status: Never used Tobacco e-Cigarette/Vaping Use: Never Used service: No Current occupational status: retired Cognitive needs: No Hearing needs: Yes Vision needs: No Review of Systems Const Denies chills, Denies fatigue, Denies fever(s), Denies frequent falls, Denies weakness, Denies weight gain and Denies weight loss ENT Denies dizziness Card Denies chest pain, Denies leg edema, Denies lightheadedness, Denies palpitations, Denies dyspnea and Denies dyspnea on exertion Resp Denies cough, Denies dyspnea and Denies dyspnea on exertion GI Denies hematochezia Musc Denies abnormal gait, Denies muscle weakness, Denies numbness, Denies radiating pain into limb and Denies tingling Neuro Denies abnormal gait, Denies dizziness, Denies frequent falls, Denies numbness, Denies tingling and Denies weakness Endo Denies fatigue and Denies palpitations Physical Exam Vital Signs: Last Vital Signs Pulse 89 10/04/25 10:54 BP 130/72 10/04/25 10:54 BMI result Body Mass Index 40.7 GENERAL APPEARANCE: in no acute distress, pleasant. Overweight. NECK: no carotid bruit, mild jugular venous distention. SKIN: no suspicious lesions, warm and dry. HEART: Ejection systolic murmur aortic area with preserved 2nd heart sound, irregular rate and rhythm. LUNGS: clear to auscultation bilaterally. ABDOMEN: soft, nontender. EXTREMITIES: no edema. PERIPHERAL PULSES: equal. NEUROLOGIC: No gross deficits, AAO X 3 Office Procedures EKG Details: Atrial fibrillation 89 beats per minute, inferior infarct, QTC 438 milliseconds. [id number], Complete Assessment & Plan Assessment & Plan (1) Aortic stenosis: Code(s): I35.0 - Nonrheumatic aortic (valve) stenosis Category: Medical Qualifiers: Cardiac valve disease etiology: nonrheumatic Qualified Code(s): I35.0 - Nonrheumatic aortic (valve) stenosis (2) SOB (shortness of breath) on exertion: Code(s): R06.02 - Shortness of breath Category: Medical (3) New onset a-fib: Code(s): I48.91 - Unspecified atrial fibrillation Category: Medical Plan [age] year gentleman presenting for assessment and management of aortic stenosis. He has persistent atrial fibrillation and is currently rate controlled. He has significant dyspnea with activities. His echocardiography has shown severe aortic valve stenosis with mean gradient of 40 and valve area of 0.98 cm2. Clinically he appears to be slightly overloaded and I am going to change hydrochlorothiazide to Lasix 40 mg. He will try this and see if this helps his shortness of breath and orthopnea episodes. He is overweight and may have underlying sleep apnea to which may need workup. In terms of aortic stenosis, I have advised him to undergo left and right heart catheterization to understand if he has any significant coronary disease. We will also cross the aortic valve and do simultaneous gradients to confirm severity of the aortic valve stenosis. He may be a reasonable candidate for aortic valve replacement surgically or transcatheter. In terms of atrial fibrillation, I have explained to him that AFib can lead to dyspnea. I have proposed to him to undergo cardioversion but he is reluctant to do that and we will think about it. In the meantime we will rate control him with metoprolol and continue the apixaban. As mentioned above hydrochlorothiazide has been held and he will be taking Lasix 40 mg daily. We will arrange left and right heart catheterization and we will plan aortic valve intervention if appropriate. Thank you for allowing me to participate in the care of your patient. Please feel free to contact me if you have any questions. Orders: Orders Complete Blood Count no Diff Today I35.0 - Nonrheumatic aortic (valve) stenosis Cardiac Cath MARCEL Diagnostic Today I35.0 - Nonrheumatic aortic (valve) stenosis Basic Metabolic Panel Today I35.0 - Nonrheumatic aortic (valve) stenosis Prothrombin Time INR Today I35.0 - Nonrheumatic aortic (valve) stenosis Medications: New furosemide (Lasix) 40 mg PO DAILY 30 tabs 0RF Discontinued hydrochlorothiazide Discontinued Reason: Doctor's Order 12.5 mg PO DAILY 90 days 90 tabs 1RF I10 - Essential (primary) hypertension Coding Level of Care Code New Pt Level 5 (14752) Diagnoses Nonrheumatic aortic valve stenosis I35.0 Cardiac valve disease etiology: nonrheumatic SOB (shortness of breath) on exertion R06.02 New onset a-fib I48.91 CPT Codes EKG - CPT: 38235-Cdaoghlnkoqfxlvth, Complete ([id number])
== END 2025-10-04 11:44 | disposition home or self-care (01) ==
LOC: HO.HCS 10:38
PROVIDERS: PCP Physician Assistant; Visit Provider Internal Medicine Cardiovascular Disease
DX: I35.0 Nonrheumatic aortic (valve) stenosis (principal); R06.02 Shortness of breath; I48.91 Unspecified atrial fibrillation
CPT/HCPCS: 93010; 99204

== ENCOUNTER → 2025-10-04 10:37 | Outpatient (BNVA) | payer MEDICARE, OTHER, SELFPAY | PROVIDERS: PCP Physician Assistant; Visit Provider Internal Medicine Cardiovascular Disease | DX: I35.0 Nonrheumatic aortic (valve) stenosis (principal); R06.02 Shortness of breath; I48.19 Other persistent atrial fibrillation; Z79.01 Long term (current) use of anticoagulants; E66.9 Obesity, unspecified; Z68.41 Body mass index [BMI] 40.0-44.9, adult | CPT/HCPCS: 93005; 99202 ==

== ENCOUNTER 2025-10-13 10:52 | Outpatient (AMB) | payer MEDICARE, OTHER, SELFPAY ==
[2025-10-13 10:57] VITALS: BP 140/86; PULSE 107; TEMP 36.8; O2SAT 99; BMI 40.7
--- NOTE | 2025-10-13 10:57 | AM.OFFWIN_ITS ---
Intake Vital Signs 10/13/25 10:57 Height 5 ft 7 in Weight 260 lb BMI 40.7 BP 140/86 H Blood Pressure Location Lt brachial Position Sitting Pulse 107 H Pulse Source Pulse Oximeter Temp 98.2 F Temp Source Oral Pulse Oximetry (%) 99 Oxygen Delivery Method Room Air Intake Visit Reasons: EP Difficulty breathing, chest tightness Intake Note: pt present with chest tightness, lightheadedness and headache, dyspnea at night. cardiac cath scheduled for 10/31/25 Patient Tobacco Use Status: Never used Tobacco Allergies No Known Allergies Allergy (Verified 10/13/25 10:59) Do you need a note to return to daycare/school/sports/work: No HPI HPI Comments History of Present Illness Details History of Present Illness The patient is a 69 year old individual with a past medical history of aortic stenosis, atrial fibrillation on Eliquis, hypertension presenting with orthopnea and chest pain. - The patient reports a long-standing hi story of shortness of breath, possibly for years. - Patient reports that he presented to [facility] urgent care today due to trouble sleeping last night as he was more short of breath than usual - Patient has been following with Cardio logy. He is scheduled to undergo a cardiac catheterization in October. His history of aortic stenosis and atrial fibrillation were thought to be contributing dyspnea and orthopnea. He was recommended cardioversion, however as he was reluctant to do so, he is rate controlled on metoprolol and on Eliquis for anticoagulation. He was also recently switched from hydrochlorothiazide to Lasix to see if that may also help with his symptoms as he was noted to be slightly overloaded. - Patient reports that he has been compl iant with his medications. - He denies any significant shortness of breath while sitting currently. - The patient also reports chest discomf ort rated 3/10 - Associated symptoms include dizziness, which the patient has difficulty distinguishing from a headache. Review of Systems Constitutional: Negative for fevers, chills Respiratory: Positive for orthopnea and shortness of breath Cardiac: Positive for chest pain, palpitations, leg edema Gastrointestinal: Negative for nausea or vomiting Neurological: Reports dizziness, with difficulty differentiating it from a headache. Physical Exam General Appearance: Normal appearance, well developed. No acute distress. No diaphoresis Head: Normocephalic, atraumatic Cardiac: Systolic murmur auscultated. Regular rate with irregular rhythm Pulmonary: No respiratory distress. Speaking in full sentences. Lungs clear to auscultation bilaterally without crackles noted Musculoskeletal: Moving all extremities spontaneously and against gravity. +1 pitting edema noted in bilateral lower extremities Mental Status: Alert and Oriented x 3 Psychiatric: Normal mood. Normal affect. [facility] Surgical History No pertinent past surgical history Family History Brother Valvular heart disease Social History Housing: Apartment Alcohol intake: never Patient Tobacco Use Status: Never used Tobacco e-Cigarette/Vaping Use: Never Used service: No Current occupational status: retired Cognitive needs: No Hearing needs: Yes Vision needs: No Physical Exam Vital Signs: Last Vital Signs Temp 98.2 F 10/13/25 10:57 Pulse 107 H 10/13/25 10:57 BP 140/86 H 10/13/25 10:57 Pulse Ox 99 10/13/25 10:57 Oxygen Delivery Method Room Air 10/13/25 10:57 BMI result Body Mass Index 40.7 Office Procedures EKG Details: Patient noted to be in AFib with a ventricular rate of 89. No significant changes noted from prior EKG on 10/04/2025. [id number], Complete Assessment & Plan Assessment & Plan (1) Orthopnea: Code(s): R06.01 - Orthopnea (2) Chest pain: Code(s): R07.9 - Chest pain, unspecified Qualifiers: Chest pain type: unspecified Qualified Code(s): R07.9 - Chest pain, unspecified Plan - Patient presents with dyspnea, orthopnea, and chest discomfort. Symptoms have been ongoing for months to years, however worsening orthopnea last night prompted him to come to the urgent care - The patient's symptoms are likely multifactorial, stemming from known aortic stenosis, atrial fibrillation, and potential volume overload - An EKG was obtained which showed patient in AFib, however rate controlled. No acute ST changes noted. - He was noted to have +1 pitting edema in bilateral lower extremities. Discussed obtaining a chest x-ray to check for any pleural effusions, however as patient is saturating well and lungs are clear to auscultation, patient requested to hold off on imaging after shared decision-making. - He is scheduled for an upcoming cardiac catheterization in a few weeks - At this time, recommended symptomatic management - Advised the patient to sleep on an incline with head elevated and recommended the use of compression stockings to help mobilize fluid from the lower extremities. - Recommneded to continue current meds including lasix - Provided strict emergency department precautions: The patient is to go to the ER immediately if chest pain worsens, shortness of breath deviates from baseline, or worsening dizziness. Patient was informed and verbally consented to the use of an ambient scribe for clinic note documentation during the visit. Orders: Orders AMB EKG-In Office 10/13/25 R07.9 - Chest pain, unspecified Coding Level of Care Code Est Pt Level 3 (05636) Diagnoses Orthopnea R06.01 Chest pain, unspecified type R07.9 Chest pain type: unspecified CPT Codes EKG - CPT: 10367-Sqzujeupigmkakfkf, Complete ([id number])
== END 2025-10-13 11:46 | disposition home or self-care (01) ==
PROVIDERS: PCP Physician Assistant; Visit Provider Family Medicine
DX: R06.01 Orthopnea (principal); R07.9 Chest pain, unspecified

== ENCOUNTER → 2025-10-13 10:52 | Outpatient (BNVA) | payer MEDICARE, OTHER, SELFPAY | PROVIDERS: PCP Physician Assistant; Visit Provider Family Medicine | DX: R07.9 Chest pain, unspecified (principal); R06.01 Orthopnea | CPT/HCPCS: 93005; 99212 ==

== ENCOUNTER 2025-10-24 10:15 | Outpatient (REF) | payer MEDICARE, OTHER, SELFPAY ==
[2025-10-24 13:42] LABS: INTERNATIONAL NORM RATIO 1.2 (0.9-1.1); Prothrombin Time 15.1 SEC (11.2-13.5)
[2025-10-24 13:58] LABS: Hematocrit 47.5 % (42.0-52.0); Hemoglobin 15.9 g/dl (14.0-18.0); Mean Corpuscular HGB Conc 33.5 g/dl (31.0-36.0); Mean Corpuscular Hemoglobin 31.2 pg (27.0-33.0); Mean Corpuscular Volume 93.1 fL (80.0-98.0); NRBC Abs Auto 0.000 X10*3/uL (0.0-0.012); NRBC Pct Auto 0.0 /100WBC (0.0-0.2); Platelet Count 251 X10*3/uL (160-400); Red Blood Count 5.10 X10*6/uL (4.60-5.80); White Blood Count 6.7 X10*3/uL (4.8-10.8)
[2025-10-24 14:20] LABS: Anion Gap 12 (12-20); Blood Urea Nitrogen 29 mg/dL (9-16); Calcium 9.4 mg/dL (8.4-10.2); Carbon Dioxide 27 mmol/L (22-29); Chloride 107 mmol/L (96-108); Estimated Glomerular Filt Rate > 60; Potassium 4.5 mmol/L (3.3-5.1); Sodium 141 mmol/L (135-145)
== END 2025-10-24 10:16 | disposition home or self-care (01) ==
LOC: HO.HMGCLDS 10:15
PROVIDERS: PCP Physician Assistant; Visit Provider Internal Medicine Cardiovascular Disease
DX: I35.0 Nonrheumatic aortic (valve) stenosis (principal)
CPT/HCPCS: 36415; 80048; 85027; 85610

== ENCOUNTER → 2025-10-31 23:59 | Outpatient (BNV) | payer MEDICARE, OTHER, SELFPAY | PROVIDERS: PCP Physician Assistant; Visit Provider Internal Medicine Cardiovascular Disease | DX: I35.0 Nonrheumatic aortic (valve) stenosis (principal); R06.02 Shortness of breath; I48.11 Longstanding persistent atrial fibrillation | CPT/HCPCS: 93460; 99152 ==